=== PATIENT | female | born 1940 | race African-American/Black ===

== ENCOUNTER 2017-12-25 13:03 | Inpatient (IN) ==
--- NOTE | 2017-12-25 14:51 | ED ---
HPI General Chief complaint: Extremity Injury, Upper Stated complaint: finger swelling Time Seen by Provider: 12/25/17 14:08 Source: patient, RN notes reviewed and old records reviewed Mode of arrival: ambulatory Limitations: no limitations History of Present Illness HPI narrative: 77-year-old female presents to the emergency department for evaluation of swelling and pain to the distal aspect of her right second finger. 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 She states that on Wednesday, 6 days ago, she noticed swelling and pain to the distal aspect of the finger. Patient denies any fevers or chills. She states she went to a sports medicine physician who did an x-ray of the finger. X-ray shows no acute osseous injury, stable finding the distal aspect the second ray with amputation of the distal portion of the distal phalanx. Regional soft tissue calcification is stable and overtly benign. Current pain is 10/10, aching and throbbing, without radiation. Moderate severity. Onset (ago): day(s) (6) Location: right and upper extremity Radiation: non-radiation Severity: moderate Severity scale (1-10): 10 Quality: aching Pain Consistency: constant Relieving factors: immobilization Exacerbating factors: movement Associated symptoms: denies other symptoms Treatments prior to arrival: other (x-ray) Related Data Home Medications Medication Instructions Recorded Confirmed calcium carbonate [Calcium 600] 1 tab PO 12/25/17 diclofenac sodium 25 mg PO DAILY 12/25/17 12/25/17 folic acid 1 mg PO DAILY 12/25/17 12/25/17 lisinopril 10 - 12.5 mg PO DAILY 12/25/17 12/25/17 vitamin D3-folic acid 1 tab PO DAILY 12/25/17 12/25/17 Allergies Allergy/AdvReac Type Severity Reaction Status Date / Time penicillin G Allergy Severe Rash Verified 12/25/17 14:38 Sulfa (Sulfonamide Allergy Severe RASH Verified 12/25/17 14:38 Antibiotics) Review of Systems Except as stated in HPI: all other systems reviewed are negative [facility] Social History Social History Substance History: No History of Abuse Second Hand Smoke Exposure: No Smoking Status: Never smoker Tobacco Type: Cigarettes How Often Do You Have a Drink Containing Alcohol: Never Recent Travel in [facility] within the Last 8 Weeks: No Recent Out of Country Travel within the Last 8 Weeks: No Immunization History Tetanus Immunization: Unsure Hx Influenza Vaccine This Season: No Exam Narrative Exam Narrative: GENERAL: Well-nourished, well-developed elderly female patient, afebrile SKIN: Focused skin assessment warm/dry. Patient is diffuse soft tissue swelling over the distal aspect of the left second finger without active drainage. Swelling appears fluctuant with erythema. HEAD: Normocephalic. Atraumatic. EYES: No scleral icterus. No injection or drainage. NECK: Supple, trachea midline. No JVD or lymphadenopathy. CARDIOVASCULAR: Regular rate and rhythm without murmurs, gallops, or rubs. RESPIRATORY: Breath sounds equal bilaterally. No accessory muscle use. GASTROINTESTINAL: Abdomen soft, non-tender, nondistended. MUSCULOSKELETAL: No cyanosis, or edema. Patient has slightly limited flexion of the left second PIP joint. 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 BACK: No obvious deformity. Course Initial Documented Vital Signs Temperature 98.3 F 12/25/17 13:06 Pulse Rate 76 12/25/17 13:06 Respiratory Rate 17 12/25/17 13:06 Blood Pressure 123/68 12/25/17 13:06 Pulse Oximetry 99 12/25/17 13:06 Last Documented Vital Signs Temperature 97.9 F 12/26/17 08:00 Pulse Rate 68 12/26/17 08:00 Respiratory Rate 18 12/26/17 08:00 Blood Pressure 124/68 12/26/17 08:00 Pulse Oximetry 99 12/26/17 08:00 Medical Decision Making MORELIA Attestation MORELIA supervised visit: Yes Attestation: The history, exam, and medical decision-making in the associated midlevel provider note were completed with my assistance. I reviewed and agree with the findings presented. I attest that I had a [id number] encounter with the patient on the same day, and personally performed and documented my assessment and findings in the medical record. *My assessment and Findings: This is a 77-year-old female who presents to the emergency department with an abscess involving the stump of a finger with a previous distal amputation. Case was discussed with Dr. Pinzon who recommended the patient be placed in observation on antibiotics and she will evaluate her for potential surgical intervention. MDM Narrative Medical decision making narrative: 77-year-old female presents to the emergency department for evaluation of swelling to the distal aspect of her left second finger this started 6 days ago. Hand surgeon on-call is paged for consultation. I spoke with Dr. Pinzon who recommends admission with antibiotics in the consultation. CBC, BMP, PTT, PT/INR, ESR, CRP, blood cultures are ordered and pending. Patient is given Clindamycin 600 mg IV. CBC shows no acute abnormalities. BMP shows BUN 28, creatinine of 1.29. CRP is 1.29. ESR is 32. Coags are unremarkable. Residents accepted admission. Differential Diagnosis Differential Diagnosis: Abscess versus cellulitis versus osteomyelitis Medical Records Medical records reviewed: Yes I reviewed the patient's medical records. Lab Data Result diagrams: 12/26/17 07:45 12/26/17 07:15 Lab Results 12/25/17 12/25/17 12/25/17 Range/Units 15:35 15:35 15:35 WBC 7.9 (4.0-11.0) th/mm3 RBC 4.00 (4.00-5.30) mil/mm3 Hgb 11.3 L (11.6-15.3) gm/dL Hct 35.3 (35.0-46.0) % MCV 88.1 (80.0-100.0) fL MCH 28.3 (27.0-34.0) pg MCHC 32.2 (32.0-36.0) % RDW 14.8 (11.6-17.2) % Plt Count 151 (150-450) th/mm3 MPV 10.6 (7.0-11.0) fL Neut % (Auto) 65.9 (16.0-70.0) % Lymph % (Auto) 22.7 (9.0-44.0) % [place] % (Auto) 9.2 H (0.0-8.0) % Eos % (Auto) 1.4 (0.0-4.0) % Baso % (Auto) 0.8 (0.0-2.0) % Neut # (Auto) 5.2 (1.8-7.7) th/mm3 Lymph # (Auto) 1.8 (1.0-4.8) th/mm3 [place]land # (Auto) 0.7 (0.0-0.9) th/mm3 Eos # (Auto) 0.1 (0.0-0.4) th/mm3 Baso # (Auto) 0.1 (0.0-0.2) th/mm3 WBC Differential . Differential Comment Auto diff final ESR (0-30) mm/hr PT 10.0 (9.8-11.6) sec INR 1.0 Ratio APTT 28.5 (24.3-30.1) sec Sodium 139 (136-145) meq/L Potassium 5.1 (3.5-5.1) meq/L Chloride 107 (98-107) meq/L Carbon Dioxide 21.1 (21.0-32.0) meq/L Anion Gap 11 (5-15) meq/L BUN 28 H (7-18) mg/dL Creatinine 1.29 H (0.50-1.00) mg/dL Estimated GFR 48 L (>89) mL/min POC Glucose (68-110) mg/dl Random Glucose 77 (74-106) mg/dL Calcium 9.0 (8.5-10.1) mg/dL Total Bilirubin (0.2-1.0) mg/dL AST (15-37) U/L ALT (10-53) U/L Alkaline Phosphatase (45-117) U/L C-Reactive Protein (0.00-0.30) mg/dL Total Protein (6.4-8.2) g/dL Albumin (3.4-5.0) g/dL Blood Type Antibody Screen 12/25/17 12/25/17 12/25/17 Range/Units 15:35 15:35 23:44 WBC (4.0-11.0) th/mm3 RBC (4.00-5.30) mil/mm3 Hgb (11.6-15.3) gm/dL Hct (35.0-46.0) % MCV (80.0-100.0) fL MCH (27.0-34.0) pg MCHC (32.0-36.0) % RDW (11.6-17.2) % Plt Count (150-450) th/mm3 MPV (7.0-11.0) fL Neut % (Auto) (16.0-70.0) % Lymph % (Auto) (9.0-44.0) % [place] % (Auto) (0.0-8.0) % Eos % (Auto) (0.0-4.0) % Baso % (Auto) (0.0-2.0) % Neut # (Auto) (1.8-7.7) th/mm3 Lymph # (Auto) (1.0-4.8) th/mm3 [place]land # (Auto) (0.0-0.9) th/mm3 Eos # (Auto) (0.0-0.4) th/mm3 Baso # (Auto) (0.0-0.2) th/mm3 WBC Differential Differential Comment ESR 32 H (0-30) mm/hr PT (9.8-11.6) sec INR Ratio APTT (24.3-30.1) sec Sodium (136-145) meq/L Potassium (3.5-5.1) meq/L Chloride (98-107) meq/L Carbon Dioxide (21.0-32.0) meq/L Anion Gap (5-15) meq/L BUN (7-18) mg/dL Creatinine (0.50-1.00) mg/dL Estimated GFR (>89) mL/min POC Glucose (68-110) mg/dl Random Glucose (74-106) mg/dL Calcium (8.5-10.1) mg/dL Total Bilirubin (0.2-1.0) mg/dL AST (15-37) U/L ALT (10-53) U/L Alkaline Phosphatase (45-117) U/L C-Reactive Protein 2.40 H (0.00-0.30) mg/dL Total Protein (6.4-8.2) g/dL Albumin (3.4-5.0) g/dL Blood Type O Positive Antibody Screen Negative 12/26/17 12/26/17 12/26/17 Range/Units 07:15 07:45 09:15 WBC 6.2 (4.0-11.0) th/mm3 RBC 3.83 L (4.00-5.30) mil/mm3 Hgb 10.7 L (11.6-15.3) gm/dL Hct 33.1 L (35.0-46.0) % MCV 86.3 (80.0-100.0) fL MCH 28.0 (27.0-34.0) pg MCHC 32.4 (32.0-36.0) % RDW 14.9 (11.6-17.2) % Plt Count 142 L (150-450) th/mm3 MPV 10.2 (7.0-11.0) fL Neut % (Auto) 55.3 (16.0-70.0) % Lymph % (Auto) 31.7 (9.0-44.0) % [place] % (Auto) 10.1 H (0.0-8.0) % Eos % (Auto) 2.2 (0.0-4.0) % Baso % (Auto) 0.7 (0.0-2.0) % Neut # (Auto) 3.4 (1.8-7.7) th/mm3 Lymph # (Auto) 2.0 (1.0-4.8) th/mm3 [place] # (Auto) 0.6 (0.0-0.9) th/mm3 Eos # (Auto) 0.1 (0.0-0.4) th/mm3 Baso # (Auto) 0.0 (0.0-0.2) th/mm3 WBC Differential . Differential Comment Auto diff final ESR (0-30) mm/hr PT (9.8-11.6) sec INR Ratio APTT (24.3-30.1) sec Sodium 145 (136-145) meq/L Potassium 4.4 (3.5-5.1) meq/L Chloride 112 H (98-107) meq/L Carbon Dioxide 23.5 (21.0-32.0) meq/L Anion Gap 10 (5-15) meq/L BUN 27 H (7-18) mg/dL Creatinine 1.13 H (0.50-1.00) mg/dL Estimated GFR 56 L (>89) mL/min POC Glucose 78 (68-110) mg/dl Random Glucose 76 (74-106) mg/dL Calcium 8.9 (8.5-10.1) mg/dL Total Bilirubin 0.3 (0.2-1.0) mg/dL AST 42 H (15-37) U/L ALT 31 (10-53) U/L Alkaline Phosphatase 126 H (45-117) U/L C-Reactive Protein (0.00-0.30) mg/dL Total Protein 7.4 (6.4-8.2) g/dL Albumin 3.2 L (3.4-5.0) g/dL Blood Type Antibody Screen Imaging Data Radiologist's impression: Finger X-Ray 12/25/17 00:00 CONCLUSION: Soft tissue swelling as above. There has been no significant change when compared to the prior exam. Hand MRI 12/25/17 00:00 CONCLUSION: Lobulated 1.5 cm mass at the distal aspect of the second digit. 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 On the plain film examination, the appearance of the distal second digit appears similar compared to prior exam from 2013. This suggest the soft tissue changes represent a chronic underlying process such an epidermis inclusion cyst versus other soft tissue masses/fluid collections. No acute bony changes are seen. Discharge Plan Discharge Disposition Patient Disposition: 30 Still Patient Discharge Details Diagnosis: Abscess of finger Physicians Team ED Provider: Gema Landa ED Midlevel Provider: Renetta Galeas Primary Care Provider: Brenda Manjarrez Attending Provider: Milly Young Other Providers: Kathryn Pinzon Status ED Status: Left Department Discharge Information Discharge Date/Time: 12/26/17 07:00
[2017-12-25] MEDS ORDERED: Clindamycin 600 mg/NS Premix 600 MG/50 ML PIGGYBACK IV.SIG ONE (15:22)
[2017-12-25 16:11] LABS: Baso # (Auto) 0.1 th/mm3 (0.0-0.2); Baso % (Auto) 0.8 % (0.0-2.0); Eos # (Auto) 0.1 th/mm3 (0.0-0.4); Eos % (Auto) 1.4 % (0.0-4.0); Hematocrit 35.3 % (35.0-46.0); Hemoglobin 11.3 gm/dL (11.6-15.3); Lymph # (Auto) 1.8 th/mm3 (1.0-4.8); Lymph % (Auto) 22.7 % (9.0-44.0); Mean Corpuscular HGB Conc 32.2 % (32.0-36.0); Mean Corpuscular Hemoglobin 28.3 pg (27.0-34.0); Mean Corpuscular Volume 88.1 fL (80.0-100.0); Mean Platelet Volume 10.6 fL (7.0-11.0); Mono # (Auto) 0.7 th/mm3 (0.0-0.9); Mono % (Auto) 9.2 % (0.0-8.0); Neut # (Auto) 5.2 th/mm3 (1.8-7.7); Neut % (Auto) 65.9 % (16.0-70.0); Platelet Count 151 th/mm3 (150-450); Red Cell Distribution Width 14.8 % (11.6-17.2); White Blood Count 7.9 th/mm3 (4.0-11.0)
[2017-12-25 16:28] LABS: Activated Partial Thrombo Time 28.5 sec (24.3-30.1)
[2017-12-25 16:29] LABS: Carbon Dioxide 21.1 meq/L (21.0-32.0); Potassium 5.1 meq/L (3.5-5.1)
--- NOTE | 2017-12-25 17:13 | XR ---
EXAM DATE: 12/25/2017 5:02 PM EDT AGE/SEX: 77 years / Female INDICATIONS: Right hand, second digit swelling. CLINICAL DATA: This is the patient's initial encounter. Patient reports that signs and symptoms have been present for 1 week and indicates a pain score of 4/10. MEDICAL/SURGICAL HISTORY: None. . 2nd digit amputation on right hand. COMPARISON: [facility], XR HAND (2 VIEWS), RIGHT, 12/23/2017. . FINDINGS: There is soft tissue swelling of the second digit. There is amputation at the level of the base of th e distal phalanx. Soft tissue calcification is unchanged from the prior exam. 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 There is no evidence of acute fracture. Bony minera lization is normal. There is no bony destruction or periosteal reaction to suggest osteomyelitis. T here is calcification of the triangular fibrocartilage. . CONCLUSION: Soft tissue swelling as above. There has been no significant change when compared to the prior exam. Electronically signed by: Vasu Lovell MD 12/25/2017 5:11 PM EDT
--- NOTE | 2017-12-25 17:38 | MR ---
EXAM DATE: 12/25/2017 4:44 PM EDT AGE/SEX: 77 years / Female INDICATIONS: Abscess. Second digit swelling. CLINICAL DATA: This is the patient's initial encounter. Patient reports that signs and symptoms have been present for 4 - 6 days and indicates a pain score of 5/10. MEDICAL/SURGICAL HISTORY: Hypertension. Hysterectomy. Second digit terminal terminal tuft accid ental amputation 1984 COMPARISON: [facility], XR HAND (MIN 3 VIEWS), RIGHT, 04/12/2013. . TECHNIQUE: Multiplanar, multisequence MRI examination was performed without contrast. FINDINGS: Marrow: The patient is status post amputation distal two thirds of the distal phalanx of the second digit. The marrow signal throughout the visualized bony structures appear normal. No areas of osteomy elitis are seen. Metacarpal-Phalangeal Joints: The MCP joints are unremarkable with no evidence of erosion, effusion, or malalignment. Interphalangeal Joints: The PIP and DIP joints are unremarkable with no evidence of erosion, effusio n or malalignment. Extensor Tendons: The visualized extensor tendons are intact. Flexor Tendons: The visualized flexor tendons are intact. Soft Tissues: There is a lobulated mass seen at the distal lateral aspect of the second digit at the patient's site. This measures approximately 1.4 cm in height, 1.4 cm in transverse dimension and 1.5 cm in AP dimension. There does appear to be a focus of low signal seen at the posterior lateral aspec t of this measuring 0.6 x 0.3 cm. This mass demonstrates increased signal in T2-weighted images and i ntermediate signal on the T1-weighted images. This does not appear to enhance. It could a complex cys tic components. This appears to have septations on the MRI examination. Coarse appearing calcificatio ns are seen on the plain film examination. These can be seen as minimal areas of low signal best seen on the coronal T1 postcontrast images. In reviewing the patient's plain films, the patient had a lob ulated appearance the distal second digit on prior exam from 04/12/2013 which appears similar to the more recent plain film. This suggests these changes are chronic. CONCLUSION: Lobulated 1.5 cm mass at the distal aspect of the second digit. 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 On the plain film examination, the appearance of the distal sec ond digit appears similar compared to prior exam from 2013. This suggest the soft tissue changes repr esent a chronic underlying process such an epidermis inclusion cyst versus other soft tissue masses/f luid collections. No acute bony changes are seen. Electronically signed by: Irving Kwan MD 12/25/2017 5:36 PM EDT
--- NOTE | 2017-12-25 18:07 | P.HPFP ---
History of Present Illness Primary Care Physician: Brenda Manjarrez MD Chief Complaint: finger pain History of Present Illness: Ms. Christianson is a 77-year-old with a past medical history of rheumatoid arthritis, hypertension presenting with right second digit pain. She states that this started 3 days ago when she woke up and noticed an infection. 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 She states that the finger started irritating her this week and hurting at night. She went to see Dr. Brewster, hand surgery, who prescribed her Bactrim. She took 1 pill not realizing it was a sulfa drug and became sick. She did not take anymore the antibiotic. This morning she woke up drenched in sweat and noticed a pocket of pus in her finger. The pain had also become much worse today. She took some diclofenac which did not help with the pain. Medical Hx Osteoarthritis Rheumatoid Arthritis HTN Frequent Falls Surgical Hx Hysterectomy for fibroids Right knee (arthroscopy) Family Hx Father - at age 72; strokes, HTN, heart Dz Mother - age 62 in MVA; arthritis Siblings - 4; one has HTN and DM, one in WW2 Children - 7 living, healthy Social Hx Tobacco: former smoker, quit age [age] (doesn't recall exact year, but > 30 years ago) Alcohol: None Drugs: None Occupation: Homemaker Living situation: Lives with many of her children in a house Education: GED - Diagnosis (1) Abscess of finger (2) HTN (hypertension) (3) Rheumatoid arthritis (4) CKD (chronic kidney disease) (5) Nutrition, metabolism, and development symptoms (6) DVT prophylaxis Inpatient Certification: I certify that the inpatient services were ordered in accordance with Medicare regulations governing the order. This includes certification that hospital inpatient services are reasonable and necessary and in the case of services not specified as inpatient-only under 42 CFR 419.22(n), that they are appropriately provided as inpatient services in accordance to with the 2-midnight benchmark under 43 CFR 412.3(e) Review of Systems Constitutional: Reports night sweats, Denies chills, Denies fever(s) Cardiovascular: Denies chest pain Respiratory: Denies shortness of breath Gastrointestinal: Denies abdominal pain, Denies change in bowel habits, Denies nausea, Denies vomiting Genitourinary: Denies difficulty starting urination Musculoskeletal: Reports joint swelling, Denies muscle weakness Neurologic: Denies tingling/numbness/burning sensations PMFSH - History History Provided By: Patient - Tobacco History Second Hand Smoke Exposure: No Tobacco Use In Past 30 Days: No Smoking Status: Never smoker - Alcohol History How Often Do You Have a Drink Containing Alcohol: Never - Substance Use History Substance History: No History of Abuse - Travel History Recent Travel in the [place] Within the Last 8 Weeks: No Recent Travel Out of the Country Within the Last 8 Weeks: No - Immunization History Tetanus Immunization: Unsure Hx Influenza Vaccine This Season: No Medications and Allergies Active Medications: Active Medications Sodium Chloride (Ns Flush) 2 ml IV.FLUSH PRN PRN PRN Reason: FLUSH AFTER USING IV ACCESS Sodium Chloride (Ns Flush) 2 ml IV.FLUSH BID CARMEN Allergies Allergy/AdvReac Type Severity Reaction Status Date / Time penicillin G Allergy Severe Rash Verified 12/25/17 14:38 Sulfa (Sulfonamide Allergy Severe RASH Verified 12/25/17 14:38 Antibiotics) Home Medications Medication Instructions Recorded Confirmed Type calcium carbonate [Calcium 600] 1 tab PO 12/25/17 History diclofenac sodium 25 mg PO DAILY 12/25/17 12/25/17 History folic acid 1 mg PO DAILY 12/25/17 12/25/17 History lisinopril 10 - 12.5 mg PO DAILY 12/25/17 12/25/17 History vitamin D3-folic acid 1 tab PO DAILY 12/25/17 12/25/17 History Exam Vital signs: Vital Signs 12/25/17 13:06 12/25/17 17:00 Temperature 98.3 F Pulse Rate 76 75 Respiratory Rate 17 16 Blood Pressure 123/68 167/84 H Pulse Oximetry 99 100 Intake & Output 12/24/17 12/25/17 12/25/17 18:59 06:59 18:59 Weight 68.946 kg Narrative: GENERAL: Elderly -[place] female sitting up in bed, in no acute distress SKIN: Warm and dry. HEAD: Atraumatic. Normocephalic. EYES: No scleral icterus. No injection or drainage. ENT: No nasal bleeding or discharge. NECK: Trachea midline. No JVD. CARDIOVASCULAR: Regular rate and rhythm. Holosystolic murmur RESPIRATORY: No accessory muscle use. Clear to auscultation. Breath sounds equal bilaterally. GASTROINTESTINAL: Abdomen soft, non-tender, nondistended. Hepatic and splenic margins not palpable. MUSCULOSKELETAL: Extremities without clubbing, cyanosis, or edema. No obvious deformities. Right hand: Amputation at the DIP joint of the right second digit. There appears to be edematous. Tender to palpation. 4 mm x 4 mm abscess at superior aspect of digit, 2 mm x 2 mm abscess superior medial aspect of digit NEUROLOGICAL: Awake and alert. No obvious cranial nerve deficits. Motor grossly within normal limits. Five out of 5 muscle strength in the arms and legs. Normal speech. PSYCHIATRIC: Appropriate mood and affect; insight and judgment normal. Results - Labs Result diagrams: 12/25/17 15:35 12/25/17 15:35 Abnormal lab results 12/25/17 12/25/17 12/25/17 Range/Units 15:35 15:35 15:35 Hgb 11.3 L (11.6-15.3) gm/dL Dewey % (Auto) 9.2 H (0.0-8.0) % ESR 32 H (0-30) mm/hr BUN 28 H (7-18) mg/dL Creatinine 1.29 H (0.50-1.00) mg/dL Estimated GFR 48 L (>89) mL/min C-Reactive Protein (0.00-0.30) mg/dL 12/25/17 Range/Units 15:35 Hgb (11.6-15.3) gm/dL Dewey % (Auto) (0.0-8.0) % ESR (0-30) mm/hr BUN (7-18) mg/dL Creatinine (0.50-1.00) mg/dL Estimated GFR (>89) mL/min C-Reactive Protein 2.40 H (0.00-0.30) mg/dL Short CBC 12/25/17 Range/Units 15:35 WBC 7.9 (4.0-11.0) th/mm3 Hgb 11.3 L (11.6-15.3) gm/dL Hct 35.3 (35.0-46.0) % Plt Count 151 (150-450) th/mm3 BMP 12/25/17 15:35 Sodium 139 Potassium 5.1 Chloride 107 Carbon Dioxide 21.1 BUN 28 H Creatinine 1.29 H Calcium 9.0 - Imaging Impressions Finger X-Ray 12/25/17 00:00 CONCLUSION: Soft tissue swelling as above. There has been no significant change when compared to the prior exam. Hand MRI 12/25/17 00:00 CONCLUSION: Lobulated 1.5 cm mass at the distal aspect of the second digit. 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 On the plain film examination, the appearance of the distal second digit appears similar compared to prior exam from 2012. This suggest the soft tissue changes represent a chronic underlying process such an epidermis inclusion cyst versus other soft tissue masses/fluid collections. No acute bony changes are seen. Caprini VTE Risk Assessment Caprini VTE Risk Assessment: Moderate/High Risk (score >= 2) Caprini Risk Assessment Model: Point Value = 1 Point Value = 2 Point Value = 3 Point Value = 5 Age 41-60 Minor surgery BMI > 25 kg/m2 Swollen legs Varicose veins or History of unexplained or recurrent spontaneous Oral contraceptives or hormone replacement Sepsis (< 1 month) Serious lung disease, including pneumonia (< 1 month) Abnormal pulmonary function Acute myocardial infarction Congestive heart failure (< 1 month) History of inflammatory bowel disease Medical patient at bed rest Age 61-74 Arthroscopic surgery Major open surgery (> 45 min) Laparoscopic surgery (> 45 min) Malignancy Confined to bed (> 72 hours) Immobilizing plaster cast Central venous access Age >= 75 History of VTE Family history of VTE Factor V Leiden Prothrombin [id number] Lupus anticoagulant Anticardiolipin antibodies Elevated serum homocysteine Heparin-induced thrombocytopenia Other congenital or acquired thrombophilia Stroke (< 1 month) Elective arthroplasty Hip, pelvis, or leg fracture Acute spinal cord injury (< 1 month) Prophylaxis Regimen: Total Risk Factor Score Risk Level Prophylaxis Regimen 0-1 Low Early ambulation 2 Moderate Order ONE of the following: *Sequential Compression Device (SCD) *Heparin 5000 units SQ BID 3-4 Higher Order ONE of the following medications: *Heparin 5000 units SQ TID *Enoxaparin/Lovenox 40 mg SQ daily (WT < 150 kg, CrCl > 30 mL/min) *Enoxaparin/Lovenox 30 mg SQ daily (WT < 150 kg, CrCl > 10-29 mL/min) *Enoxaparin/Lovenox 30 mg SQ BID (WT < 150 kg, CrCl > 30 mL/min) AND/OR *Sequential Compression Device (SCD) 5 or more Highest Order ONE of the following medications: *Heparin 5000 units SQ TID (Preferred with Epidurals) *Enoxaparin/Lovenox 40 mg SQ daily (WT < 150 kg, CrCl > 30 mL/min) *Enoxaparin/Lovenox 30 mg SQ daily (WT < 150 kg, CrCl > 10-29 mL/min) *Enoxaparin/Lovenox 30 mg SQ BID (WT < 150 kg, CrCl > 30 mL/min) AND *Sequential Compression Device (SCD) Assessment and Plan - Assessment (1) Abscess of finger Code(s): L02.519 - Cutaneous abscess of unspecified hand Status: Acute Plan: Patient with visible abscess of second digit of right hand. CRP and ESR are elevated. Likely osteomyelitis versus abscess versus cellulitis. Hand MRI: Lobulated 1.5 cm mass at the distal aspect of the second digit. 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 The soft tissue changes represent a chronic underlying process such an epidermis inclusion cyst versus other soft tissue masses/fluid collections. No acute bony changes are seen. -Consult hand surgery, ED physician spoke with Dr. Pinzon, appreciate recommendations -N.p.o. after midnight -NS IV fluids at maintenance rate 110 mL's/hour -Clindamycin 600 mg IV given in ED -Will continue this at every 8 hours -Tramadol per pain scale (2) HTN (hypertension) Code(s): I10 - Essential (primary) hypertension Status: Chronic Plan: Continue patient's at home medication of lisinopril-HCTZ 10-12.5 mg daily (3) Rheumatoid arthritis Code(s): M06.9 - Rheumatoid arthritis, unspecified Status: Chronic Plan: Patient currently not on her at home methotrexate. She is to follow-up with her corn cooker as of her last progress note from the [facility]. (4) CKD (chronic kidney disease) Code(s): N18.9 - Chronic kidney disease, unspecified Status: Chronic Plan: Creatinine at 2.40. Upon chart review creatinine 12/06/17 was 1.19. This is likely an acute on chronic situation. -Continue to monitor -IVF on board (5) Nutrition, metabolism, and development symptoms Code(s): R63.8 - Other symptoms and signs concerning food and fluid intake Status: Acute Plan: Fluids: NS @ 110ml/hr Electrolytes: monitor and replete as needed Nutrition: NPO after midnight GI Prophylaxis: None indicated at this time (6) DVT prophylaxis Status: Acute Plan: DVT Prophylaxis: Early ambulation. bilateral SCDs - Assessment and Plan 77-year-old AAF with a past medical history of CKD, hypertension, rheumatoid arthritis presenting with second digit of the right hand pain. Patient likely has an abscess. Hand surgery is on board. Discussed Condition With: Dr. Kahn Discharge Planning: Upon clinical course and clearance by hand surgery (1) Abscess of finger Qualifiers: Laterality: right Qualified Code(s): L02.511 - Cutaneous abscess of right hand
[2017-12-25] MEDS ORDERED: Acetaminophen 325 MG Tablet PO PRN (19:40)
[2017-12-25] MEDS ORDERED: Naloxone Inj 0.4 MG/ML Vial IV.PUSH PRN (19:40)
[2017-12-25] MEDS: Clindamycin 600 mg/NS Premix 600 MG/50 ML PIGGYBACK IV.SIG SCH (21:14)
[2017-12-26] MEDS: Sod Chloride 0.9% Inj 1,000 ML IV.CONT SCH (00:08)
[2017-12-26 08:28] LABS: Baso % (Auto) 0.7 % (0.0-2.0); Eos # (Auto) 0.1 th/mm3 (0.0-0.4); Eos % (Auto) 2.2 % (0.0-4.0); Hematocrit 33.1 % (35.0-46.0); Hemoglobin 10.7 gm/dL (11.6-15.3); Lymph % (Auto) 31.7 % (9.0-44.0); Mean Corpuscular HGB Conc 32.4 % (32.0-36.0); Mean Corpuscular Volume 86.3 fL (80.0-100.0); Mean Platelet Volume 10.2 fL (7.0-11.0); Mono # (Auto) 0.6 th/mm3 (0.0-0.9); Mono % (Auto) 10.1 % (0.0-8.0); Neut # (Auto) 3.4 th/mm3 (1.8-7.7); Neut % (Auto) 55.3 % (16.0-70.0); Platelet Count 142 th/mm3 (150-450); Red Blood Count 3.83 mil/mm3 (4.00-5.30); Red Cell Distribution Width 14.9 % (11.6-17.2); White Blood Count 6.2 th/mm3 (4.0-11.0)
[2017-12-26 08:54] LABS: Alanine Aminotransferase 31 U/L (10-53); Albumin 3.2 g/dL (3.4-5.0); Anion Gap 10 meq/L (5-15); Aspartate Aminotransferase 42 U/L (15-37); Blood Urea Nitrogen 27 mg/dL (7-18); Calcium 8.9 mg/dL (8.5-10.1); Carbon Dioxide 23.5 meq/L (21.0-32.0); Chloride 112 meq/L (98-107); Glomerular Filtration Rate 56 mL/min (>89); Glucose,Random 76 mg/dL (74-106); Potassium 4.4 meq/L (3.5-5.1); Sodium 145 meq/L (136-145)
[2017-12-26 08:57] LABS: Alkaline Phosphatase 126 U/L (45-117); Total Protein 7.4 g/dL (6.4-8.2)
[2017-12-26] MEDS ORDERED: Clindamycin Inj 600 MG/4 ML Vial ONE (09:34)
[2017-12-26] MEDS ORDERED: Morphine Inj 4 MG/ML Vial IV.PUSH PRN ×2 (09:34)
[2017-12-26] MEDS ORDERED: Morphine Sulfate Inj 2 MG/ML Vial IV.PUSH PRN (09:34)
[2017-12-26] MEDS ORDERED: Neomycin/Polymyxin G.U. Irrigant 1 ML Ampul ONE (10:14)
[2017-12-26] MEDS ORDERED: Lidocaine PF 2% Inj 10 ML Ampul ONE (10:23)
[2017-12-26] MEDS ORDERED: fentaNYL Citrate Inj 100 MCG/2 ML Ampul ONE (11:45)
--- NOTE | 2017-12-26 11:53 | P.HPFP ---
History of Present Illness Primary Care Physician: Brenda Manjarrez MD Chief Complaint: finger pain History of Present Illness: Ms. Christianson is a 77-year-old with a past medical history of rheumatoid arthritis, hypertension presenting with right second digit pain. She states that this started 3 days prior to admission when she woke up and noticed an infection. 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 She states that the finger started irritating her this week and hurting at night. She went to see Dr. Brewstre, hand surgery, who prescribed her Bactrim. She took 1 pill not realizing it was a sulfa drug and became sick. She did not take anymore antibiotic. The morning of admission she woke up drenched in sweat and noticed a pocket of pus in her finger. The pain had also become much worse today. She took some diclofenac which did not help with the pain. She was seen by the hand surgeon. She underwent surgery and according to the operative note there was no raging infection. This was felt to be more of a stable problem. Her clindamycin was discontinued. Her white blood count is and has been normal. Her sedimentation rate is normal especially considering she has rheumatoid arthritis. She has had no fevers. Medical Hx Osteoarthritis Rheumatoid Arthritis HTN Frequent Falls Surgical Hx Hysterectomy for fibroids Right knee (arthroscopy) Family Hx Father - at age 72; strokes, HTN, heart Dz Mother - age 62 in MVA; arthritis Siblings - 4; one has HTN and DM, one in WW2 Children - 7 living, healthy Social Hx Tobacco: former smoker, quit age [age] (doesn't recall exact year, but > 30 years ago) Alcohol: None Drugs: None Occupation: Homemaker Living situation: Lives with many of her children in a house Education: GED - Diagnosis (1) Abscess of finger (2) HTN (hypertension) (3) Rheumatoid arthritis (4) CKD (chronic kidney disease) (5) Nutrition, metabolism, and development symptoms (6) DVT prophylaxis Inpatient Certification: I certify that the inpatient services were ordered in accordance with Medicare regulations governing the order. This includes certification that hospital inpatient services are reasonable and necessary and in the case of services not specified as inpatient-only under 42 CFR 419.22(n), that they are appropriately provided as inpatient services in accordance to with the 2-midnight benchmark under 43 CFR 412.3(e) Review of Systems See the review of systems from her history and physical dictated yesterday. PMFSH - History History Provided By: Patient - Tobacco History Second Hand Smoke Exposure: No Tobacco Use In Past 30 Days: No Smoking Status: Never smoker Tobacco Type: Cigarettes - Alcohol History How Often Do You Have a Drink Containing Alcohol: Never - Substance Use History Substance History: No History of Abuse - Travel History Recent Travel in the [place] Within the Last 8 Weeks: No Recent Travel Out of the Country Within the Last 8 Weeks: No - Immunization History Tetanus Immunization: Unsure Hx Influenza Vaccine This Season: No Medications and Allergies Active Medications: Active Medications Acetaminophen (Tylenol) 650 mg PO Q6H PRN PRN Reason: PAIN SCALE 1 TO 2 Hydrochlorothiazide (Microzide) 12.5 mg PO DAILY [facility] Sodium Chloride (Ns Inj) 1,000 mls @ 110 mls/hr IV.CONT .Q9H6M [facility] Last Admin: 12/26/17 00:08 Dose: 110 mls/hr Lisinopril (Prinivil) 10 mg PO DAILY [facility] Morphine Sulfate (Morphine Inj) 4 mg IV.PUSH Q3H PRN PRN Reason: PAIN 6-10;IF UNABLE TO TAKE PO Morphine Sulfate (Morphine Inj) 2 mg IV.PUSH Q3H PRN PRN Reason: BREAKTHROUGH PAIN Morphine Sulfate (Morphine Inj) 2 mg IV.PUSH Q3H PRN PRN Reason: PAIN 3-5; IF UABLE TO TAKE PO Naloxone HCl (Narcan Inj) 0.4 mg IV.PUSH UNSCH PRN PRN Reason: SEE LABEL COMMENTS Ondansetron HCl (Zofran Inj) 4 mg IV.PUSH Q6H PRN PRN Reason: NAUSEA OR VOMITING Sodium Chloride (Ns Flush) 2 ml IV.FLUSH PRN PRN PRN Reason: FLUSH AFTER USING IV ACCESS Sodium Chloride (Ns Flush) 2 ml IV.FLUSH BID [facility] Last Admin: 12/25/17 21:24 Dose: 2 ml Tramadol HCl (Ultram) 100 mg PO Q4H PRN PRN Reason: PAIN SCALE 6 TO 10 Last Admin: 12/25/17 21:23 Dose: 100 mg Tramadol HCl (Ultram) 50 mg PO Q4H PRN PRN Reason: PAIN SCALE 3 TO 5 Allergies Allergy/AdvReac Type Severity Reaction Status Date / Time penicillin G Allergy Severe Rash Verified 12/25/17 14:38 Sulfa (Sulfonamide Allergy Severe RASH Verified 12/25/17 14:38 Antibiotics) Home Medications Medication Instructions Recorded Confirmed Type calcium carbonate [Calcium 600] 1 tab PO 12/25/17 History diclofenac sodium 25 mg PO DAILY 12/25/17 12/25/17 History folic acid 1 mg PO DAILY 12/25/17 12/25/17 History lisinopril 10 - 12.5 mg PO DAILY 12/25/17 12/25/17 History vitamin D3-folic acid 1 tab PO DAILY 12/25/17 12/25/17 History Exam Vital signs: Vital Signs 12/25/17 13:06 12/25/17 17:00 12/25/17 21:20 Temperature 98.3 F 98.1 F Pulse Rate 76 75 84 Respiratory Rate 17 16 17 Blood Pressure 123/68 167/84 H 111/64 Pulse Oximetry 99 100 98 12/26/17 03:25 12/26/17 08:00 Temperature 97.9 F 97.9 F Pulse Rate 84 68 Respiratory Rate 16 18 Blood Pressure 118/63 124/68 Pulse Oximetry 100 99 Intake & Output 12/25/17 12/26/17 12/26/17 18:59 06:59 18:59 Intake Total 770 / 770 Balance 770 / 770 Weight 68.946 kg Intake: IV 50 / 50 Cleocin 600 mg/NS Premix 600 mg 50 / 50 In 50 ml @ 100 mls/hr IV.SIG ONCE ONE Rx#:[id number] Oral 720 / 720 Other: # Voids 0 Date of Last Bowel Movement 12/24/17 - Constitutional no acute distress, thin, cooperative - Routine HEENT Exam Head: Present: normocephalic, atraumatic. Absent: cushingoid faces, laceration , facial swelling Eye: Present: EOMI. Absent: scleral injection, conjunctivae pink, periorbital ecchymosis, periorbital swelling ENT: Present: mucous membranes moist. Absent: septal deviation - Routine Neck Exam Present: supple, trachea midline - Routine Chest/Breast/Axilla Exam Chest wall: Absent: tenderness, pacemaker, chest tube - Routine Respiratory Exam Present: CTA bilaterally. Absent: accessory muscle use, prolonged expiratory phase, rales, respiratory distress, rhonchi - Routine Cardiovascular Exam Present: RRR. Absent: murmur, gallop, rubs, bradycardia, tachycardia - Routine Abdominal Exam Present: soft. Absent: tenderness, distended, rebound, guarding, firm, rigid - Routine Extremities Exam Absent: cyanosis, clubbing, edema, pallor (Her hand is bandaged where the surgery was done today.) - Routine Skin Exam Present: intact, dry. Absent: cyanosis, erythema, pallor, mottling, petechiae - Routine Neurological Exam Present: alert, oriented X3, moving all extremities, normal tone, hearing grossly intact, normal speech. Absent: sensory deficit, motor deficit Results - Labs Result diagrams: 12/26/17 07:45 12/26/17 07:15 Abnormal lab results 12/25/17 12/25/17 12/25/17 Range/Units 15:35 15:35 15:35 RBC (4.00-5.30) mil/mm3 Hgb 11.3 L (11.6-15.3) gm/dL Hct (35.0-46.0) % Plt Count (150-450) th/mm3 [place] % (Auto) 9.2 H (0.0-8.0) % ESR 32 H (0-30) mm/hr Chloride (98-107) meq/L BUN 28 H (7-18) mg/dL Creatinine 1.29 H (0.50-1.00) mg/dL Estimated GFR 48 L (>89) mL/min AST (15-37) U/L Alkaline Phosphatase (45-117) U/L C-Reactive Protein (0.00-0.30) mg/dL Albumin (3.4-5.0) g/dL 12/25/17 12/26/17 12/26/17 Range/Units 15:35 07:15 07:45 RBC 3.83 L (4.00-5.30) mil/mm3 Hgb 10.7 L (11.6-15.3) gm/dL Hct 33.1 L (35.0-46.0) % Plt Count 142 L (150-450) th/mm3 [place] % (Auto) 10.1 H (0.0-8.0) % ESR (0-30) mm/hr Chloride 112 H (98-107) meq/L BUN 27 H (7-18) mg/dL Creatinine 1.13 H (0.50-1.00) mg/dL Estimated GFR 56 L (>89) mL/min AST 42 H (15-37) U/L Alkaline Phosphatase 126 H (45-117) U/L C-Reactive Protein 2.40 H (0.00-0.30) mg/dL Albumin 3.2 L (3.4-5.0) g/dL Short CBC 12/25/17 12/26/17 Range/Units 15:35 07:45 WBC 7.9 6.2 (4.0-11.0) th/mm3 Hgb 11.3 L 10.7 L (11.6-15.3) gm/dL Hct 35.3 33.1 L (35.0-46.0) % Plt Count 151 142 L (150-450) th/mm3 BMP 12/25/17 12/26/17 15:35 07:15 Sodium 139 145 Potassium 5.1 4.4 Chloride 107 112 H Carbon Dioxide 21.1 23.5 BUN 28 H 27 H Creatinine 1.29 H 1.13 H Calcium 9.0 8.9 Liver Function 12/26/17 Range/Units 07:15 Total Bilirubin 0.3 (0.2-1.0) mg/dL AST 42 H (15-37) U/L ALT 31 (10-53) U/L Alkaline Phosphatase 126 H (45-117) U/L Albumin 3.2 L (3.4-5.0) g/dL - Imaging Impressions Finger X-Ray 12/25/17 00:00 CONCLUSION: Soft tissue swelling as above. There has been no significant change when compared to the prior exam. Hand MRI 12/25/17 00:00 CONCLUSION: Lobulated 1.5 cm mass at the distal aspect of the second digit. 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 On the plain film examination, the appearance of the distal second digit appears similar compared to prior exam from 2012. This suggest the soft tissue changes represent a chronic underlying process such an epidermis inclusion cyst versus other soft tissue masses/fluid collections. No acute bony changes are seen. Caprini VTE Risk Assessment Caprini VTE Risk Assessment: Moderate/High Risk (score >= 2) Caprini Risk Assessment Model: Point Value = 1 Point Value = 2 Point Value = 3 Point Value = 5 Age 41-60 Minor surgery BMI > 25 kg/m2 Swollen legs Varicose veins or History of unexplained or recurrent spontaneous Oral contraceptives or hormone replacement Sepsis (< 1 month) Serious lung disease, including pneumonia (< 1 month) Abnormal pulmonary function Acute myocardial infarction Congestive heart failure (< 1 month) History of inflammatory bowel disease Medical patient at bed rest Age 61-74 Arthroscopic surgery Major open surgery (> 45 min) Laparoscopic surgery (> 45 min) Malignancy Confined to bed (> 72 hours) Immobilizing plaster cast Central venous access Age >= 75 History of VTE Family history of VTE Factor V Leiden Prothrombin [id number] Lupus anticoagulant Anticardiolipin antibodies Elevated serum homocysteine Heparin-induced thrombocytopenia Other congenital or acquired thrombophilia Stroke (< 1 month) Elective arthroplasty Hip, pelvis, or leg fracture Acute spinal cord injury (< 1 month) Prophylaxis Regimen: Total Risk Factor Score Risk Level Prophylaxis Regimen 0-1 Low Early ambulation 2 Moderate Order ONE of the following: *Sequential Compression Device (SCD) *Heparin 5000 units SQ BID 3-4 Higher Order ONE of the following medications: *Heparin 5000 units SQ TID *Enoxaparin/Lovenox 40 mg SQ daily (WT < 150 kg, CrCl > 30 mL/min) *Enoxaparin/Lovenox 30 mg SQ daily (WT < 150 kg, CrCl > 10-29 mL/min) *Enoxaparin/Lovenox 30 mg SQ BID (WT < 150 kg, CrCl > 30 mL/min) AND/OR *Sequential Compression Device (SCD) 5 or more Highest Order ONE of the following medications: *Heparin 5000 units SQ TID (Preferred with Epidurals) *Enoxaparin/Lovenox 40 mg SQ daily (WT < 150 kg, CrCl > 30 mL/min) *Enoxaparin/Lovenox 30 mg SQ daily (WT < 150 kg, CrCl > 10-29 mL/min) *Enoxaparin/Lovenox 30 mg SQ BID (WT < 150 kg, CrCl > 30 mL/min) AND *Sequential Compression Device (SCD) Assessment and Plan - Assessment (1) Abscess of finger Code(s): L02.519 - Cutaneous abscess of unspecified hand Status: Acute Plan: Patient with visible abscess of second digit of right hand when admitted. CRP and ESR are elevated but she does have rheumatoid arthritis. Thought to be on admission osteomyelitis versus abscess versus cellulitis. However on surgery today this was not thought to be all infectious. Hand MRI: Lobulated 1.5 cm mass at the distal aspect of the second digit. 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 The soft tissue changes represent a chronic underlying process such an epidermis inclusion cyst versus other soft tissue masses/fluid collections. No acute bony changes are seen. -Consulted hand surgery, ED physician spoke with Dr. Pinzon, appreciate recommendations -Will eat regular diet at this time -Clindamycin 600 mg IV given in ED -This was stopped by surgery -Tramadol per pain scale -Infectious disease has been consulted (2) HTN (hypertension) Code(s): I10 - Essential (primary) hypertension Status: Chronic Plan: Continue patient's at home medication of lisinopril-HCTZ 10-12.5 mg daily (3) Rheumatoid arthritis Code(s): M06.9 - Rheumatoid arthritis, unspecified Status: Chronic Plan: Patient currently not on her at home methotrexate. She is to follow-up with her system programmer as of her last progress note from the [facility]. (4) CKD (chronic kidney disease) Code(s): N18.9 - Chronic kidney disease, unspecified Status: Chronic Plan: Creatinine at 2.40. Upon chart review creatinine 12/06/17 was 1.19. This is likely an acute on chronic situation. -Continue to monitor -IVF was given. her creatinine is fine today we will Hep-Lock her IV and allow her to eat and drink. (5) Nutrition, metabolism, and development symptoms Code(s): R63.8 - Other symptoms and signs concerning food and fluid intake Status: Acute Plan: Fluids: NS @ 110ml/hr Electrolytes: monitor and replete as needed Nutrition: NPO after midnight GI Prophylaxis: None indicated at this time (6) DVT prophylaxis Status: Acute Plan: DVT Prophylaxis: Early ambulation. bilateral SCDs as she does have surgery today we will continue to hold any heparin until at least 24 hours after surgery. - Assessment and Plan 77-year-old AAF with a past medical history of CKD, hypertension, rheumatoid arthritis presenting with second digit of the right hand pain. Patient likely has an abscess. Hand surgery is on board. H&P: Quality - VTE Deep Vein Thrombosis/Pulmonary Embolism Present on Admission: No (1) Abscess of finger Qualifiers: Laterality: right Qualified Code(s): L02.511 - Cutaneous abscess of right hand (2) HTN (hypertension) Qualifiers: Hypertension type: essential hypertension Qualified Code(s): I10 - Essential (primary) hypertension (3) Rheumatoid arthritis Qualifiers: Rheumatoid arthritis location: hand Rheumatoid factor presence: unspecified presence Laterality: bilateral Qualified Code(s): M06.9 - Rheumatoid arthritis , unspecified (4) CKD (chronic kidney disease) Qualifiers: Chronic kidney disease stage: stage 2 (mild) Qualified Code(s): N18.2 - Chronic kidney disease, stage 2 (mild)
[2017-12-26] MEDS ORDERED: Lidocaine PF 1% Inj 5 ML Syringe INFILTRATN ONE (12:00)
--- NOTE | 2017-12-26 12:02 | P.PNOP ---
Subjective Interval history: Patient reports pain controlled in PACU. Physical Exam Vital signs: Vital Signs 12/25/17 13:06 12/25/17 17:00 12/25/17 21:20 Temperature 98.3 F 98.1 F Pulse Rate 76 75 84 Respiratory Rate 17 16 17 Blood Pressure 123/68 167/84 H 111/64 Pulse Oximetry 99 100 98 12/26/17 03:25 12/26/17 08:00 12/26/17 11:40 Temperature 97.9 F 97.9 F Pulse Rate 84 68 73 Respiratory Rate 16 18 13 Blood Pressure 118/63 124/68 134/75 Pulse Oximetry 100 99 98 Intake & Output 12/25/17 12/26/17 12/26/17 18:59 06:59 18:59 Intake Total 770 / 770 Balance 770 / 770 Weight 68.946 kg Intake: IV 50 / 50 Cleocin 600 mg/NS Premix 600 mg 50 / 50 In 50 ml @ 100 mls/hr IV.SIG ONCE ONE Rx#:[id number] Oral 720 / 720 Other: # Voids 0 Date of Last Bowel Movement 12/24/17 - Routine Extremities Exam Comments: Dressing in place Results - Labs CBC & Chem 7: 12/26/17 07:45 12/26/17 07:15 Laboratory Results - last 24 hr 12/25/17 12/25/17 12/25/17 15:35 15:35 15:35 WBC 7.9 RBC 4.00 Hgb 11.3 L Hct 35.3 MCV 88.1 MCH 28.3 MCHC 32.2 RDW 14.8 Plt Count 151 MPV 10.6 Neut % (Auto) 65.9 Lymph % (Auto) 22.7 [place] % (Auto) 9.2 H Eos % (Auto) 1.4 Baso % (Auto) 0.8 Neut # (Auto) 5.2 Lymph # (Auto) 1.8 [place] # (Auto) 0.7 Eos # (Auto) 0.1 Baso # (Auto) 0.1 WBC Differential . Differential Comment Auto diff final ESR PT 10.0 INR 1.0 APTT 28.5 Sodium 139 Potassium 5.1 Chloride 107 Carbon Dioxide 21.1 Anion Gap 11 BUN 28 H Creatinine 1.29 H Estimated GFR 48 L POC Glucose Random Glucose 77 Calcium 9.0 Total Bilirubin AST ALT Alkaline Phosphatase C-Reactive Protein Total Protein Albumin Blood Type Antibody Screen 12/25/17 12/25/17 12/25/17 15:35 15:35 23:44 WBC RBC Hgb Hct MCV MCH MCHC RDW Plt Count MPV Neut % (Auto) Lymph % (Auto) [place] % (Auto) Eos % (Auto) Baso % (Auto) Neut # (Auto) Lymph # (Auto) [place] # (Auto) Eos # (Auto) Baso # (Auto) WBC Differential Differential Comment ESR 32 H PT INR APTT Sodium Potassium Chloride Carbon Dioxide Anion Gap BUN Creatinine Estimated GFR POC Glucose Random Glucose Calcium Total Bilirubin AST ALT Alkaline Phosphatase C-Reactive Protein 2.40 H Total Protein Albumin Blood Type O Positive Antibody Screen Negative 12/26/17 12/26/17 12/26/17 07:15 07:45 09:15 WBC 6.2 RBC 3.83 L Hgb 10.7 L Hct 33.1 L MCV 86.3 MCH 28.0 MCHC 32.4 RDW 14.9 Plt Count 142 L MPV 10.2 Neut % (Auto) 55.3 Lymph % (Auto) 31.7 [place] % (Auto) 10.1 H Eos % (Auto) 2.2 Baso % (Auto) 0.7 Neut # (Auto) 3.4 Lymph # (Auto) 2.0 [place] # (Auto) 0.6 Eos # (Auto) 0.1 Baso # (Auto) 0.0 WBC Differential . Differential Comment Auto diff final ESR PT INR APTT Sodium 145 Potassium 4.4 Chloride 112 H Carbon Dioxide 23.5 Anion Gap 10 BUN 27 H Creatinine 1.13 H Estimated GFR 56 L POC Glucose 78 Random Glucose 76 Calcium 8.9 Total Bilirubin 0.3 AST 42 H ALT 31 Alkaline Phosphatase 126 H C-Reactive Protein Total Protein 7.4 Albumin 3.2 L Blood Type Antibody Screen Microbiology 12/25/17 15:35 Blood - Peripheral Aerobic Blood Culture - Preliminary No growth in 1 day 12/25/17 15:35 Blood - Peripheral Anaerobic Blood Culture - Preliminary No growth in 1 day 12/25/17 15:40 Blood - Peripheral Aerobic Blood Culture - Preliminary No growth in 1 day 12/25/17 15:40 Blood - Peripheral Anaerobic Blood Culture - Preliminary No growth in 1 day - Imaging Impressions Finger X-Ray 12/25/17 00:00 CONCLUSION: Soft tissue swelling as above. There has been no significant change when compared to the prior exam. Hand MRI 12/25/17 00:00 CONCLUSION: Lobulated 1.5 cm mass at the distal aspect of the second digit. 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 On the plain film examination, the appearance of the distal second digit appears similar compared to prior exam from 2012. This suggest the soft tissue changes represent a chronic underlying process such an epidermis inclusion cyst versus other soft tissue masses/fluid collections. No acute bony changes are seen. Assessment and Plan - Assessment and Plan [id number] POD0 s/p I&D abscess right index finger which had prior amputation through the distal phalanx now amputation through the DIP joint, concern for osteomyelitis -Multiple cultures and bone biopsy sent, appreciate ID input, patient likely will remain in the hospital until cultures final -Daily dressing changes -will continue to follow
[2017-12-26] MEDS ORDERED: *morphine SULFATE 4 MG/ML PERIprocedure ONLY ONE (12:08)
--- NOTE | 2017-12-26 12:34 | MB ---
cc: Kathryn Pinzon MD DATE: 12/26/2017 REASON FOR CONSULTATION: Abscess, right index finger, status post remote history of amputation through the right index finger. HISTORY OF PRESENT ILLNESS: Valeri Christianson is a very pleasant 77-year-old right-hand dominant female, who states that she sustained an amputation through the right index finger through the distal phalanx in 1984 after an injury when cutting meat. She states she has had no problems except right after the amputation, she did have an infection, which was drained. She reports no other problems until approximately 4 days ago, she noted swelling over the right index finger. She does not recall any trauma or lacerations. She was given 1 dose of Bactrim by an outside physician, but IS ALLERGIC to this. She presented to the emergency room yesterday for worsening pain and swelling. She was admitted and started on IV antibiotics. An MRI was obtained, which is concerning for a large abscess. The patient reports pain over the finger. Denies any other areas of pain. PAST MEDICAL HISTORY: Osteoarthritis, hypertension. SURGICAL HISTORY: Hysterectomy, right knee surgery, right index finger amputation surgery. SOCIAL HISTORY: Patient denies current tobacco, alcohol or drug use. LABORATORY DATA: White count 7.9, ESR 32. CRP 2.4, glucose 78. IMAGING: X-rays show prior amputation of the right index finger through the distal phalanx with some calcification. MRI concerning for abscess. PHYSICAL EXAMINATION: The patient is alert and oriented. Exam of the right index finger shows amputation through the distal phalanx with no remaining nail. There is significant fluctuance on the ulnar aspect of the finger, concerning for abscess. ASSESSMENT AND PLAN: A 77-year-old female status post prior amputation of the right index finger through the distal phalanx, now with presentation concerning for abscess. Treatment options discussed with the patient and her family. They elected to proceed with surgical intervention. Risks were explained but not limited to wound complications, infection, stiffness, loss of range of motion, sepsis, need for additional surgeries and she elected to proceed at the earliest available time in the operating room. Kathryn Pinzon MD [facility] , 12:09 PM , 12:32 PM [facility]
--- NOTE | 2017-12-26 12:41 | MP ---
cc: Kathryn Pinzon MD DATE OF OPERATION: PREOPERATIVE DIAGNOSIS: Abscess, right index finger, which has sustained a prior amputation through the distal phalanx. POSTOPERATIVE DIAGNOSIS: Abscess, right index finger, which has sustained a prior amputation through the distal phalanx. PROCEDURES: 1. Irrigation and debridement deep abscess associated with possible osteomyelitis, right index finger. 2. Revision amputation, right index finger through the distal interphalangeal joint with neurectomies and direct closure 3. Interpretation of fluoroscopy by the surgeon, right index finger. SURGEON: Kathryn Pinzon MD DOCK BUILDER: None. ANESTHESIA: General and local. TOURNIQUET: None. SPECIMENS: Cultures x2, abscess for pathology, as well as bone for pathology. INDICATIONS FOR PROCEDURE: Valeri Christianson is a 77-year-old female status post amputation of the right index finger in 1984 after an injury. She states she did have 1 episode of infection, but has had no problems until approximately 4 days ago. She noted pain and swelling of the finger. She presented yesterday to the emergency room. She was started on antibiotics with minimal improvement in her symptoms. MRI concerning for a large fluid collection consistent with an abscess. The patient elected to proceed with surgical intervention. Risks were explained to include but not limited to wound complication, infection, sepsis, decreased range of motion, stiffness, pain, need for additional surgeries. She elected to proceed. DESCRIPTION OF PROCEDURE: The patient was identified in the preoperative holding area. The correct extremity was marked. The patient was taken to the operating room where anesthesia was induced. The right upper extremity was prepped and draped in normal sterile fashion. An incision was made over the ulnar tip at the area concerning for the abscess. Upon making a skin incision, there was significant purulence which was expressed and sent for culture. There was peeling of the skin. There was also deep abscess concerning for osteomyelitis. Some of the bone was sent for pathology, as well as the abscess. The decision was made to complete the amputation through the distal interphalangeal joint again for concern for osteomyelitis. The area was irrigated with antibiotic saline and rongeurs were used. Under fluoroscopy, the amputation was confirmed through the distal interphalangeal joint. Neurectomies were performed and direct loose closure with chromic. The patient will remain admitted in the hospital on IV antibiotics and we will follow the cultures closely. She will work on gentle range of motion. Kathryn Pinzon MD [facility]ITALI[facility] , 12:12 PM , 12:39 PM [facility]
[2017-12-26] MEDS: Lisinopril 10 MG Tablet PO SCH (13:40)
[2017-12-26] MEDS ORDERED: Vancomycin Consult Pharmacy 1 EACH OTHER SCH (17:00)
--- NOTE | 2017-12-26 17:47 | MB ---
cc: Alex Jones MD DATE: 12/26/2017 REQUESTING PHYSICIAN: Dr. Kathryn Pinzon REASON FOR CONSULTATION: Abscess of right index finger. HISTORY OF PRESENT ILLNESS: This is a 77-year-old black female who developed pain in her right index finger. 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 She reported pain starting up this week, approximately 5 days ago, and she was seen by a hand surgeon and was put on Bactrim. SHE HAS AN ALLERGY TO SULFA. She took 1 pill 4 days ago and immediately she developed nausea and vomiting and felt poorly. The finger became swollen and reddened and she presented to the emergency department for evaluation. She noted the pain in her finger was 10/10 scale when she presented. She was taken to surgery by Dr. Pinzon and underwent irrigation and debridement of a deep abscess and also revision of the amputation of the right index finger through the DIP joint and direct closure. She noted possibility of osteomyelitis and bone was sent for pathology. There was noted to be significant purulence as well. Currently, the patient has no complaints except for pain in the index finger, which is controlled with pain medication. She denies chills and has no nausea or vomiting. PAST MEDICAL HISTORY: Rheumatoid arthritis, hypertension and chronic kidney disease. ALLERGIES: 1. PENICILLIN. 2. SULFA. MEDICATIONS: 1. Hydrochlorothiazide. 2. Prinivil. 3. Tramadol. SOCIAL HISTORY: No tobacco, alcohol or illicit drugs. FAMILY HISTORY: Noncontributory. REVIEW OF SYSTEMS: All other systems reviewed and are negative, except for that mentioned in the history of present illness. PHYSICAL EXAMINATION: GENERAL: This is a pleasant, well-developed female who is in no acute distress. She is awake and alert and oriented. VITAL SIGNS: Temperature 97.8, blood pressure 152/91, respirations 17, heart rate 69. HEENT: Her head is atraumatic. Extraocular movements grossly intact. Pupils reactive to light. No icterus. Oropharynx moist mucosa without lesions. NECK: Supple without adenopathy. LUNGS: Clear breath sounds bilaterally. HEART: Regular S1, S2, without murmurs, rubs or gallops. ABDOMEN: Bowel sounds present, soft, nontender. RECTAL: Not performed. EXTREMITIES: The right hand is in a surgical dressing, which was not removed for inspection at this time. The patient is postop. The lower extremities revealed mild swelling of the knees. Otherwise, no clubbing, cyanosis or edema. SKIN: No rash. NEUROLOGIC: No gross focal finding. PSYCHIATRIC: Patient is calm and cooperative. LABORATORY DATA: WBC 6.2, sedimentation rate 32, platelets 142. Creatinine 1.13, estimated GFR 56. C-reactive protein 2.4. Wound culture is pending. Blood culture is pending. IMPRESSION: Abscess of the right index finger and changes concerning for osteomyelitis. Cultures pending. Bone pathology pending. RECOMMENDATIONS: Give vancomycin IV while awaiting the final culture. Because of the patient's renal function, a 1 gram dose will be given and levels will be ordered. Thank you for this consultation. I will follow the patient's progress and the cultures and adjust antibiotics accordingly. Thank you for this consultation. MD KADIE Infante/DIEGO , 04:50 PM , 05:46 PM
[2017-12-26] MEDS ORDERED: Vancomycin Inj 1,750 MG in Sodium Chlor 0.9% Inj 500 ML IV.SIG ONE (18:00)
[2017-12-27] MEDS: Sod Chloride 0.9% Inj 1,000 ML IV.CONT SCH (00:22)
--- NOTE | 2017-12-27 09:01 | P.PNFP ---
Subjective Interval history: Patient was seen and examined this morning. She is any pain and notes that she did have some small surgical site bleeding when she used the right arm to steady herself while toileting. This resolved after re-wrapping with nursing staff. The patient denies fevers, chills, nausea, vomiting, headaches, chest pain, abdominal pain, lower extremity edema. <Giulia Manjarrez Nasra - 12/27/17 10:00> Results - Labs Result diagrams: 12/28/17 06:25 12/28/17 06:25 <Milly Young - 12/28/17 13:38> Abnormal lab results 12/28/17 12/28/17 Range/Units 06:25 06:25 RBC 3.65 L (4.00-5.30) mil/mm3 Hgb 10.3 L (11.6-15.3) gm/dL Hct 32.0 L (35.0-46.0) % Plt Count 145 L (150-450) th/mm3 [place] % (Auto) 10.6 H (0.0-8.0) % Chloride 113 H (98-107) meq/L BUN 24 H (7-18) mg/dL Creatinine 1.03 H (0.50-1.00) mg/dL Estimated GFR 63 L (>89) mL/min Calcium 8.3 L (8.5-10.1) mg/dL Alkaline Phosphatase 128 H (45-117) U/L Albumin 3.0 L (3.4-5.0) g/dL Short CBC 12/28/17 Range/Units 06:25 WBC 5.7 (4.0-11.0) th/mm3 Hgb 10.3 L (11.6-15.3) gm/dL Hct 32.0 L (35.0-46.0) % Plt Count 145 L (150-450) th/mm3 BMP 12/28/17 06:25 Sodium 144 Potassium 4.6 Chloride 113 H Carbon Dioxide 23.4 BUN 24 H Creatinine 1.03 H Calcium 8.3 L Liver Function 12/28/17 Range/Units 06:25 Total Bilirubin 0.2 (0.2-1.0) mg/dL AST 26 (15-37) U/L ALT 26 (10-53) U/L Alkaline Phosphatase 128 H (45-117) U/L Albumin 3.0 L (3.4-5.0) g/dL <Milly Young M - 12/28/17 13:38> Physical Exam Vital signs: Vital Signs 12/27/17 16:00 12/27/17 20:00 12/28/17 00:00 Temperature 98.8 F 98.6 F 98.5 F Pulse Rate 79 75 76 Respiratory Rate 18 16 17 Blood Pressure 153/80 H 127/58 L 107/67 Pulse Oximetry 99 100 100 12/28/17 04:00 12/28/17 07:35 12/28/17 12:00 Temperature 98.4 F 98.1 F 97.8 F Pulse Rate 68 70 72 Respiratory Rate 16 18 16 Blood Pressure 136/74 153/77 H 131/78 Pulse Oximetry 100 99 100 Intake & Output 12/27/17 12/28/17 12/28/17 18:59 06:59 18:59 Intake Total 200 / 200 Balance 200 / 200 Intake: IV 200 / 200 Doxy 100 Inj 100 MG In NS Inj 200 / 200 100 ML @ 100 mls/hr IV.SIG Q12H [facility] Rx#:[id number] Other: # Voids 1 <Milly Young M - 12/28/17 13:38> Vital Signs 12/26/17 11:40 12/26/17 12:00 12/26/17 12:15 Temperature 97.8 F Pulse Rate 73 71 69 Respiratory Rate 13 18 17 Blood Pressure 134/75 134/73 152/91 H Pulse Oximetry 98 98 98 12/26/17 16:00 12/26/17 20:00 12/27/17 00:00 Temperature 98.8 F 98.5 F 98.4 F Pulse Rate 88 78 68 Respiratory Rate 18 18 20 Blood Pressure 116/58 L 132/87 131/74 Pulse Oximetry 96 98 98 12/27/17 04:00 12/27/17 08:00 Temperature 97.5 F L 98.8 F Pulse Rate 72 69 Respiratory Rate 20 18 Blood Pressure 136/75 152/78 H Pulse Oximetry 99 97 Intake & Output 12/26/17 12/27/17 12/27/17 18:59 06:59 18:59 Intake Total 800 / 800 1879 / 1880 Output Total 200 / 200 Balance 600 / 600 1880 / 1880 Intake: IV 1400 / 1400 NS Inj 1,000 ML @ 110 mls/hr IV 1000 / 1000 .CONT .Q9H6M [facility] Rx#:[id number] Vancomycin Inj 1,750 MG In NS 400 / 400 Inj 500 ML @ 250 mls/hr IV.SIG ONCE ONE Rx#:[id number] Oral 800 / 800 480 / 480 Output: Urine 200 / 200 Other: # Voids 1 <Giulia Manjarrez - 12/27/17 09:01> Narrative: GENERAL: Well-appearing elderly female in no apparent distress. SKIN: Warm and dry. No ecchymoses or rashes noted HEAD: Atraumatic. Normocephalic. EYES: Pupils equal and round. No scleral icterus. No injection or drainage. ENT: No nasal bleeding or discharge. Mucous membranes pink and moist. NECK: Trachea midline. No JVD. CARDIOVASCULAR: Regular rate and rhythm without murmur. RESPIRATORY: No accessory muscle use. Clear to auscultation. Breath sounds equal bilaterally. GASTROINTESTINAL: Abdomen soft, non-tender, nondistended. Hepatic and splenic margins not palpable. MUSCULOSKELETAL: Right distal forearm with clean and dry surgical wrap. The distal fingers are freely mobile and mildly swollen. They have intact sensation. Extremities otherwise without clubbing, cyanosis, or edema. No obvious deformities. NEUROLOGICAL: Awake and alert. No obvious cranial nerve deficits. Motor grossly within normal limits. Five out of 5 muscle strength in the arms and legs. Normal speech. PSYCHIATRIC: Appropriate mood and affect; insight and judgment normal. <Giulia Manjarrez L - 12/27/17 10:00> Assessment and Plan - Assessment (1) Abscess of finger Code(s): L02.519 - Cutaneous abscess of unspecified hand Status: Acute (2) Vagina bleeding Code(s): N93.9 - Abnormal uterine and vaginal bleeding, unspecified Status: Acute (3) CKD (chronic kidney disease) Code(s): N18.9 - Chronic kidney disease, unspecified Status: Chronic (4) Thrombocytopenia Code(s): D69.6 - Thrombocytopenia, unspecified Status: Acute (5) Anemia Code(s): D64.9 - Anemia, unspecified Status: Chronic (6) HTN (hypertension) Code(s): I10 - Essential (primary) hypertension Status: Chronic (7) Rheumatoid arthritis Code(s): M06.9 - Rheumatoid arthritis, unspecified Status: Chronic (8) Nutrition, metabolism, and development symptoms Code(s): R63.8 - Other symptoms and signs concerning food and fluid intake Status: Acute <Milly Young - 12/28/17 13:38> (1) Abscess of finger Code(s): L02.519 - Cutaneous abscess of unspecified hand Status: Acute Plan: Patient is status post I&D on 12/26, uncomplicated per documentation. Per ID notes suspicious for osteomyelitis. CRP 2.4, ESR 32. Patient does not meet sepsis criteria. Wound cultures and bone biopsy results pending. Patient to remain inpatient while monitoring results and to continue IV antibiotics. Of note she had an episode of Red Man Syndrome after IV vancomycin administration on 12/26. She received Benadryl and has had no further reaction. Vancomycin has been listed as an allergy prior to my evaluation. Will defer to ID and hand surgery regarding further antibiotic recommendations. Patient likely can attempt repeat vancomycin dose today with slow infusion rate and possible premedication with for example Vistaril. She may be a candidate for twice daily dosing if reasonable. Impression: Patient with visible abscess of second digit of right hand when admitted on . CRP and ESR are elevated but she does have rheumatoid arthritis. Thought to be on admission osteomyelitis versus abscess versus cellulitis. However on surgery today this was not thought to be all infectious. Hand MRI 12/25: Lobulated 1.5 cm mass at the distal aspect of the second digit. 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 The soft tissue changes represent a chronic underlying process such an epidermis inclusion cyst versus other soft tissue masses/fluid collections. No acute bony changes are seen. -Consulted hand surgery, ED physician spoke with Dr. Pinzon, appreciate recommendations -Will eat regular diet at this time -Clindamycin 600 mg IV given in ED -This was stopped by surgery -Vancomycin IV administered 12/26 with Red Man Syndrome reported, amenable to Benadryl. Reaction occurred after administration was completed. -Tramadol per pain scale -Infectious disease has been consulted, vancomycin ordered -Wound and bone biopsy results pending from 12/26 (2) CKD (chronic kidney disease) Code(s): N18.9 - Chronic kidney disease, unspecified Status: Chronic Plan: Creatinine 1.13 this morning. -Continue to monitor -IVF was given. her creatinine is fine today we will Hep-Lock her IV and allow her to eat and drink. (3) Thrombocytopenia Code(s): D69.6 - Thrombocytopenia, unspecified Status: Acute Plan: Mild, will continue to monitor. Will order Lovenox given DVT prophylaxis is indicated but if platelets continue to drop will discontinue (4) Anemia Code(s): D64.9 - Anemia, unspecified Status: Chronic Plan: Mild, appears chronic. We will continue to monitor. (5) HTN (hypertension) Code(s): I10 - Essential (primary) hypertension Status: Chronic Plan: Continue patient's at home medication of lisinopril-HCTZ 10-12.5 mg daily (6) Rheumatoid arthritis Code(s): M06.9 - Rheumatoid arthritis, unspecified Status: Chronic Plan: Patient currently not on her at home methotrexate. She is to follow-up with her assistant to the dean as of her last progress note from the [facility]. (7) Nutrition, metabolism, and development symptoms Code(s): R63.8 - Other symptoms and signs concerning food and fluid intake Status: Acute Plan: Fluids: PO hydration Electrolytes: monitor and replete as needed Nutrition: Regular diet GI Prophylaxis: None indicated at this time DVT Prophylaxis: Early ambulation. Lovenox 40mg subQ q24hr/bilateral SCDs PRN anti-HTN: Clonidine 0.1mg PO PRN for SBP > 180/ and/or DBP > 100 <Giulia Manjarrez - 12/27/17 10:00> - Assessment and Plan 77-year-old AAF with a past medical history of CKD, hypertension, rheumatoid arthritis presenting with second digit of the right hand pain. Patient admitted for workup of abscess versus osteomyelitis. Hand surgery and ID consulted and following closely.. Patient is status post I&D with bone biopsy . Admitted to inpatient 12/27, met inpatient criteria 12/25 given IV antibiotics administered <Giulia Manjarrez - 12/27/17 10:00> Discussed Condition With: Milly Young MD (attending) <Giulia Manjarrez - 12/27/17 10:04> Discharge Planning: Postoperative from I&D on 12/26/17. Patient will remain inpatient while cultures and bone biopsy are pending. Hand surgery and ID managing/following. Patient will likely be discharged to home. PT and OT evaluations ordered <LokiStevehill Hammonds - 12/27/17 10:04> - Attending Attestation The exam, history, and the medical decision-making described in the above note were completed with the assistance of the resident physician. I reviewed and agree with the findings presented. I attest that I had a [id number] encounter with the patient on the same day, and personally performed and documented my assessment and findings in the medical record. Her hand is well bandaged. appreciate the help of surgery and infectious disease. <Milly Young - 12/28/17 13:38> <Steve Manjarreza L - Last Filed: 12/27/17 10:00> (1) Abscess of finger Qualifiers: Laterality: right Qualified Code(s): L02.511 - Cutaneous abscess of right hand (2) CKD (chronic kidney disease) Qualifiers: Chronic kidney disease stage: stage 2 (mild) Qualified Code(s): N18.2 - Chronic kidney disease, stage 2 (mild) (5) HTN (hypertension) Qualifiers: Hypertension type: essential hypertension Qualified Code(s): I10 - Essential (primary) hypertension (6) Rheumatoid arthritis Qualifiers: Rheumatoid arthritis location: hand Rheumatoid factor presence: unspecified presence Laterality: bilateral Qualified Code(s): M06.9 - Rheumatoid arthritis , unspecified <Milly Young - Last Filed: 12/28/17 13:38> (1) Abscess of finger Qualifiers: Laterality: right Qualified Code(s): L02.511 - Cutaneous abscess of right hand (3) CKD (chronic kidney disease) Qualifiers: Chronic kidney disease stage: stage 2 (mild) Qualified Code(s): N18.2 - Chronic kidney disease, stage 2 (mild) (6) HTN (hypertension) Qualifiers: Hypertension type: essential hypertension Qualified Code(s): I10 - Essential (primary) hypertension (7) Rheumatoid arthritis Qualifiers: Rheumatoid arthritis location: hand Rheumatoid factor presence: unspecified presence Laterality: bilateral Qualified Code(s): M06.9 - Rheumatoid arthritis , unspecified <Giulia Manjarrez L - Last Filed: 12/27/17 10:00> (1) Abscess of finger Qualifiers: Laterality: right Qualified Code(s): L02.511 - Cutaneous abscess of right hand (2) CKD (chronic kidney disease) Qualifiers: Chronic kidney disease stage: stage 2 (mild) Qualified Code(s): N18.2 - Chronic kidney disease, stage 2 (mild) (5) HTN (hypertension) Qualifiers: Hypertension type: essential hypertension Qualified Code(s): I10 - Essential (primary) hypertension (6) Rheumatoid arthritis Qualifiers: Rheumatoid arthritis location: hand Rheumatoid factor presence: unspecified presence Laterality: bilateral Qualified Code(s): M06.9 - Rheumatoid arthritis , unspecified <Milly Young M - Last Filed: 12/28/17 13:38> (1) Abscess of finger Qualifiers: Laterality: right Qualified Code(s): L02.511 - Cutaneous abscess of right hand (3) CKD (chronic kidney disease) Qualifiers: Chronic kidney disease stage: stage 2 (mild) Qualified Code(s): N18.2 - Chronic kidney disease, stage 2 (mild) (6) HTN (hypertension) Qualifiers: Hypertension type: essential hypertension Qualified Code(s): I10 - Essential (primary) hypertension (7) Rheumatoid arthritis Qualifiers: Rheumatoid arthritis location: hand Rheumatoid factor presence: unspecified presence Laterality: bilateral Qualified Code(s): M06.9 - Rheumatoid arthritis , unspecified
[2017-12-27] MEDS: Lisinopril 10 MG Tablet PO SCH (09:47)
[2017-12-27 09:57] LABS: Baso % (Auto) 0.7 % (0.0-2.0); Eos # (Auto) 0.2 th/mm3 (0.0-0.4); Eos % (Auto) 3.2 % (0.0-4.0); Hematocrit 32.9 % (35.0-46.0); Hemoglobin 10.6 gm/dL (11.6-15.3); Lymph # (Auto) 1.7 th/mm3 (1.0-4.8); Lymph % (Auto) 28.9 % (9.0-44.0); Mean Corpuscular HGB Conc 32.1 % (32.0-36.0); Mean Corpuscular Hemoglobin 28.2 pg (27.0-34.0); Mean Corpuscular Volume 87.9 fL (80.0-100.0); Mean Platelet Volume 10.8 fL (7.0-11.0); Mono # (Auto) 0.6 th/mm3 (0.0-0.9); Mono % (Auto) 9.4 % (0.0-8.0); Neut # (Auto) 3.4 th/mm3 (1.8-7.7); Neut % (Auto) 57.8 % (16.0-70.0); Platelet Count 145 th/mm3 (150-450); Red Blood Count 3.75 mil/mm3 (4.00-5.30); Red Cell Distribution Width 15.1 % (11.6-17.2); White Blood Count 5.9 th/mm3 (4.0-11.0)
[2017-12-27 10:17] LABS: Calcium 8.7 mg/dL (8.5-10.1); Carbon Dioxide 21.5 meq/L (21.0-32.0); Potassium 4.7 meq/L (3.5-5.1)
--- NOTE | 2017-12-27 12:03 | ECG ---
Date Performed: 12/26/2017 Time Performed: 09:07:41 PTAGE: 77 years EKG: Sinus rhythm NORMAL ECG NO PREVIOUS TRACING DOCTOR: Papi Baez Interpretating Date/Time 12/27/2017 12:00:50
--- NOTE | 2017-12-27 12:19 | P.PNID ---
Subjective Remarks: Patient notes some pain in the right index finger. Afebrile. Developed itching and skin rash during vancomycin administration yesterday. Feels okay now. This is a 77-year-old black female who developed pain in her right index finger. 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 She reported pain starting up this week, approximately 5 days ago, and she was seen by a hand surgeon and was put on Bactrim. SHE HAS AN ALLERGY TO SULFA. She took 1 pill 4 days ago and immediately she developed nausea and vomiting and felt poorly. The finger became swollen and reddened and she presented to the emergency department for evaluation. She noted the pain in her finger was 10/10 scale when she presented. She was taken to surgery by Dr. Pinzon and underwent irrigation and debridement of a deep abscess and also revision of the amputation of the right index finger through the DIP joint and direct closure. Past Medical History: PAST MEDICAL HISTORY: Rheumatoid arthritis, hypertension and chronic kidney disease. Allergies/Adverse Reactions: Allergies penicillin G Allergy (Severe, Verified 12/25/17 14:38) Rash Sulfa (Sulfonamide Antibiotics) Allergy (Severe, Verified 12/25/17 14:38) RASH vancomycin Allergy (Verified 12/27/17 05:47) Itching, Generalized Objective Vital Signs 12/26/17 12:15 12/26/17 16:00 12/26/17 20:00 Temperature 98.8 F 98.5 F Pulse Rate 69 88 78 Respiratory Rate 17 18 18 Blood Pressure 152/91 H 116/58 L 132/87 Pulse Oximetry 98 96 98 12/27/17 00:00 12/27/17 04:00 12/27/17 08:00 Temperature 98.4 F 97.5 F L 98.8 F Pulse Rate 68 72 69 Respiratory Rate 20 20 18 Blood Pressure 131/74 136/75 152/78 H Pulse Oximetry 98 99 97 Intake & Output 12/26/17 12/27/17 12/27/17 18:59 06:59 18:59 Intake Total 800 / 800 1880 / 1880 Output Total 200 / 200 Balance 600 / 600 1880 / 1880 Intake: IV 1400 / 1400 NS Inj 1,000 ML @ 110 mls/hr IV 1000 / 1000 .CONT .Q9H6M [facility] Rx#:[id number] Vancomycin Inj 1,750 MG In NS 400 / 400 Inj 500 ML @ 250 mls/hr IV.SIG ONCE ONE Rx#:[id number] Oral 800 / 800 480 / 480 Output: Urine 200 / 200 Other: # Voids 1 12/25/17 15:35 Blood - Peripheral Aerobic Blood Culture - Preliminary No growth in 2 days 12/25/17 15:35 Blood - Peripheral Anaerobic Blood Culture - Preliminary No growth in 2 days 12/25/17 15:40 Blood - Peripheral Aerobic Blood Culture - Preliminary No growth in 2 days 12/25/17 15:40 Blood - Peripheral Anaerobic Blood Culture - Preliminary No growth in 2 days 12/26/17 10:38 Wound - Finger Fungal Smear - Final No fungal elements seen 12/26/17 10:38 Wound - Finger Fungal Culture - Pending 12/26/17 10:38 Wound - Finger Gram Stain - Final 12/26/17 10:38 Wound - Finger Wound Culture - Pending 12/26/17 10:38 Abscess - Finger Fungal Smear - Final No fungal elements seen 12/26/17 10:38 Abscess - Finger Fungal Culture - Pending 12/26/17 10:38 Abscess - Finger Gram Stain - Final 12/26/17 10:38 Abscess - Finger Wound Culture - Pending 12/26/17 10:38 Abscess - Finger Fungal Smear - Final No fungal elements seen 12/26/17 10:38 Abscess - Finger Fungal Culture - Pending 12/26/17 10:38 Abscess - Finger Gram Stain - Final 12/26/17 10:38 Abscess - Finger Wound Culture - Pending 12/26/17 10:38 Wound - Finger Acid Fast Bacilli Smear - Pending 12/26/17 10:38 Wound - Finger Mycobacterial Culture - Pending 12/26/17 10:38 Abscess - Finger Acid Fast Bacilli Smear - Pending 12/26/17 10:38 Abscess - Finger Mycobacterial Culture - Pending 12/26/17 10:38 Abscess - Finger Acid Fast Bacilli Smear - Pending 12/26/17 10:38 Abscess - Finger Mycobacterial Culture - Pending Lab - Hematology Results 12/25/17 12/25/17 12/26/17 15:35 15:35 07:45 WBC 7.9 6.2 RBC 4.00 3.83 L Hgb 11.3 L 10.7 L Hct 35.3 33.1 L MCV 88.1 86.3 MCH 28.3 28.0 MCHC 32.2 32.4 RDW 14.8 14.9 Plt Count 151 142 L MPV 10.6 10.2 Neut % (Auto) 65.9 55.3 Lymph % (Auto) 22.7 31.7 [place] % (Auto) 9.2 H 10.1 H Eos % (Auto) 1.4 2.2 Baso % (Auto) 0.8 0.7 Neut # (Auto) 5.2 3.4 Lymph # (Auto) 1.8 2.0 [place] # (Auto) 0.7 0.6 Eos # (Auto) 0.1 0.1 Baso # (Auto) 0.1 0.0 WBC Differential . . Differential Comment Auto diff final Auto diff final ESR 32 H 12/27/17 08:41 WBC 5.9 RBC 3.75 L Hgb 10.6 L Hct 32.9 L MCV 87.9 MCH 28.2 MCHC 32.1 RDW 15.1 Plt Count 145 L MPV 10.8 Neut % (Auto) 57.8 Lymph % (Auto) 28.9 [place] % (Auto) 9.4 H Eos % (Auto) 3.2 Baso % (Auto) 0.7 Neut # (Auto) 3.4 Lymph # (Auto) 1.7 [place] # (Auto) 0.6 Eos # (Auto) 0.2 Baso # (Auto) 0.0 WBC Differential . Differential Comment Auto diff final ESR Lab - Chemistry Results 12/25/17 12/25/17 12/26/17 15:35 15:35 07:15 Sodium 139 145 Potassium 5.1 4.4 Chloride 107 112 H Carbon Dioxide 21.1 23.5 Anion Gap 11 10 BUN 28 H 27 H Creatinine 1.29 H 1.13 H Estimated GFR 48 L 56 L POC Glucose Random Glucose 77 76 Calcium 9.0 8.9 Total Bilirubin 0.3 AST 42 H ALT 31 Alkaline Phosphatase 126 H C-Reactive Protein 2.40 H Total Protein 7.4 Albumin 3.2 L 12/26/17 12/27/17 09:15 08:41 Sodium 143 Potassium 4.7 Chloride 113 H Carbon Dioxide 21.5 Anion Gap 9 BUN 24 H Creatinine 1.09 H Estimated GFR 59 L POC Glucose 78 Random Glucose 68 L Calcium 8.7 Total Bilirubin AST ALT Alkaline Phosphatase C-Reactive Protein Total Protein Albumin Imaging: ITS Impressions Finger X-Ray 12/25/17 00:00 CONCLUSION: Soft tissue swelling as above. There has been no significant change when compared to the prior exam. Hand MRI 12/25/17 00:00 CONCLUSION: Lobulated 1.5 cm mass at the distal aspect of the second digit. 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 On the plain film examination, the appearance of the distal second digit appears similar compared to prior exam from 2012. This suggest the soft tissue changes represent a chronic underlying process such an epidermis inclusion cyst versus other soft tissue masses/fluid collections. No acute bony changes are seen. Physical Exam: PHYSICAL EXAMINATION: GENERAL: No acute distress. HEENT: No icterus. Oropharynx moist mucosa without lesions. NECK: Supple without adenopathy. LUNGS: Clear breath sounds. HEART: Regular S1, S2, without murmurs, rubs or gallops. EXTREMITIES: The right hand is in a surgical dressing, which was not removed for inspection at this time. No visible swelling at the forearm. SKIN: No rash visible. NEUROLOGIC: No gross focal finding. PSYCHIATRIC: Calm and cooperative. Assessment and Plan - Plan IMPRESSION: Abscess of the right index finger and changes concerning for osteomyelitis. Cultures pending. Bone pathology pending. Allergic reaction to vancomycin. Multiple antibiotic allergies. Chronic kidney disease. RECOMMENDATIONS: Start Doxycycline IV. Monitor for reaction. I spoke to Micro. Preliminary culture shows a staph aureus MSSA. Discussed with patient's daughter at bedside.
[2017-12-27] MEDS: Enoxaparin Inj 40 MG/0.4 ML Syringe SQ SCH (13:40)
[2017-12-28 07:19] LABS: Baso % (Auto) 0.6 % (0.0-2.0); Eos # (Auto) 0.2 th/mm3 (0.0-0.4); Eos % (Auto) 3.5 % (0.0-4.0); Hemoglobin 10.3 gm/dL (11.6-15.3); Lymph # (Auto) 1.7 th/mm3 (1.0-4.8); Lymph % (Auto) 30.4 % (9.0-44.0); Mean Corpuscular HGB Conc 32.3 % (32.0-36.0); Mean Corpuscular Hemoglobin 28.3 pg (27.0-34.0); Mean Corpuscular Volume 87.6 fL (80.0-100.0); Mean Platelet Volume 10.3 fL (7.0-11.0); Mono # (Auto) 0.6 th/mm3 (0.0-0.9); Mono % (Auto) 10.6 % (0.0-8.0); Neut # (Auto) 3.1 th/mm3 (1.8-7.7); Neut % (Auto) 54.9 % (16.0-70.0); Platelet Count 145 th/mm3 (150-450); Red Blood Count 3.65 mil/mm3 (4.00-5.30); White Blood Count 5.7 th/mm3 (4.0-11.0)
[2017-12-28 07:40] LABS: Alanine Aminotransferase 26 U/L (10-53); Anion Gap 8 meq/L (5-15); Aspartate Aminotransferase 26 U/L (15-37); Blood Urea Nitrogen 24 mg/dL (7-18); Calcium 8.3 mg/dL (8.5-10.1); Carbon Dioxide 23.4 meq/L (21.0-32.0); Chloride 113 meq/L (98-107); Glomerular Filtration Rate 63 mL/min (>89); Glucose,Random 81 mg/dL (74-106); Potassium 4.6 meq/L (3.5-5.1); Sodium 144 meq/L (136-145)
[2017-12-28 07:42] LABS: Alkaline Phosphatase 128 U/L (45-117); Total Protein 6.6 g/dL (6.4-8.2)
--- NOTE | 2017-12-28 08:10 | P.PNFP ---
Subjective Interval history: Patient was seen and examined this morning. Her hand has no pain. She states she had vaginal bleeding overnight, about a teaspoon or less. She states this is a first occurrence and she speculates that it was related to her scratching herself. She had a total hysterectomy in the 1970s per her report. The patient denies fevers, chills, nausea, vomiting, headaches, chest pain, abdominal pain, lower extremity edema. <LokiGiulia L - 12/28/17 09:46> Results - Labs Result diagrams: 12/28/17 06:25 12/28/17 06:25 <Milly Young - 12/28/17 13:40> Abnormal lab results 12/28/17 12/28/17 Range/Units 06:25 06:25 RBC 3.65 L (4.00-5.30) mil/mm3 Hgb 10.3 L (11.6-15.3) gm/dL Hct 32.0 L (35.0-46.0) % Plt Count 145 L (150-450) th/mm3 Reynolds % (Auto) 10.6 H (0.0-8.0) % Chloride 113 H (98-107) meq/L BUN 24 H (7-18) mg/dL Creatinine 1.03 H (0.50-1.00) mg/dL Estimated GFR 63 L (>89) mL/min Calcium 8.3 L (8.5-10.1) mg/dL Alkaline Phosphatase 128 H (45-117) U/L Albumin 3.0 L (3.4-5.0) g/dL Short CBC 12/28/17 Range/Units 06:25 WBC 5.7 (4.0-11.0) th/mm3 Hgb 10.3 L (11.6-15.3) gm/dL Hct 32.0 L (35.0-46.0) % Plt Count 145 L (150-450) th/mm3 BMP 12/28/17 06:25 Sodium 144 Potassium 4.6 Chloride 113 H Carbon Dioxide 23.4 BUN 24 H Creatinine 1.03 H Calcium 8.3 L Liver Function 12/28/17 Range/Units 06:25 Total Bilirubin 0.2 (0.2-1.0) mg/dL AST 26 (15-37) U/L ALT 26 (10-53) U/L Alkaline Phosphatase 128 H (45-117) U/L Albumin 3.0 L (3.4-5.0) g/dL <Milly Young M - 12/28/17 13:40> Abnormal lab results 12/27/17 12/27/17 12/28/17 Range/Units 08:41 08:41 06:25 RBC 3.75 L 3.65 L (4.00-5.30) mil/mm3 Hgb 10.6 L 10.3 L (11.6-15.3) gm/dL Hct 32.9 L 32.0 L (35.0-46.0) % Plt Count 145 L 145 L (150-450) th/mm3 Reynolds % (Auto) 9.4 H 10.6 H (0.0-8.0) % Chloride 113 H (98-107) meq/L BUN 24 H (7-18) mg/dL Creatinine 1.09 H (0.50-1.00) mg/dL Estimated GFR 59 L (>89) mL/min Random Glucose 68 L (74-106) mg/dL Calcium (8.5-10.1) mg/dL Alkaline Phosphatase (45-117) U/L Albumin (3.4-5.0) g/dL 12/28/17 Range/Units 06:25 RBC (4.00-5.30) mil/mm3 Hgb (11.6-15.3) gm/dL Hct (35.0-46.0) % Plt Count (150-450) th/mm3 Reynolds % (Auto) (0.0-8.0) % Chloride 113 H (98-107) meq/L BUN 24 H (7-18) mg/dL Creatinine 1.03 H (0.50-1.00) mg/dL Estimated GFR 63 L (>89) mL/min Random Glucose (74-106) mg/dL Calcium 8.3 L (8.5-10.1) mg/dL Alkaline Phosphatase 128 H (45-117) U/L Albumin 3.0 L (3.4-5.0) g/dL Short CBC 12/27/17 12/28/17 Range/Units 08:41 06:25 WBC 5.9 5.7 (4.0-11.0) th/mm3 Hgb 10.6 L 10.3 L (11.6-15.3) gm/dL Hct 32.9 L 32.0 L (35.0-46.0) % Plt Count 145 L 145 L (150-450) th/mm3 BMP 12/27/17 12/28/17 08:41 06:25 Sodium 143 144 Potassium 4.7 4.6 Chloride 113 H 113 H Carbon Dioxide 21.5 23.4 BUN 24 H 24 H Creatinine 1.09 H 1.03 H Calcium 8.7 8.3 L Liver Function 12/28/17 Range/Units 06:25 Total Bilirubin 0.2 (0.2-1.0) mg/dL AST 26 (15-37) U/L ALT 26 (10-53) U/L Alkaline Phosphatase 128 H (45-117) U/L Albumin 3.0 L (3.4-5.0) g/dL <Giulia Manjarrez L - 12/28/17 08:10> Physical Exam Vital signs: Vital Signs 12/27/17 16:00 12/27/17 20:00 12/28/17 00:00 Temperature 98.8 F 98.6 F 98.5 F Pulse Rate 79 75 76 Respiratory Rate 18 16 17 Blood Pressure 153/80 H 127/58 L 107/67 Pulse Oximetry 99 100 100 12/28/17 04:00 12/28/17 07:35 12/28/17 12:00 Temperature 98.4 F 98.1 F 97.8 F Pulse Rate 68 70 72 Respiratory Rate 16 18 16 Blood Pressure 136/74 153/77 H 131/78 Pulse Oximetry 100 99 100 Intake & Output 12/27/17 12/28/17 12/28/17 18:59 06:59 18:59 Intake Total 200 / 200 Balance 200 / 200 Intake: IV 200 / 200 Doxy 100 Inj 100 MG In NS Inj 200 / 200 100 ML @ 100 mls/hr IV.SIG Q12H CARMEN Rx#:[id number] Other: # Voids 1 <Milly Young M - 12/28/17 13:40> Vital Signs 12/27/17 12:00 12/27/17 16:00 12/27/17 20:00 Temperature 97.9 F 98.8 F 98.6 F Pulse Rate 83 79 75 Respiratory Rate 18 18 16 Blood Pressure 110/62 153/80 H 127/58 L Pulse Oximetry 97 99 100 12/28/17 00:00 12/28/17 04:00 12/28/17 07:35 Temperature 98.5 F 98.4 F 98.1 F Pulse Rate 76 68 70 Respiratory Rate Blood Pressure 107/67 136/74 153/77 H Pulse Oximetry 100 100 99 Intake & Output 12/27/17 12/28/17 12/28/17 18:59 06:59 18:59 Intake Total 200 / 200 Balance 200 / 200 Intake: IV 200 / 200 Doxy 100 Inj 100 MG In NS Inj 200 / 200 100 ML @ 100 mls/hr IV.SIG Q12H CARMEN Rx#:[id number] <LokiGiulia L - 12/28/17 08:10> Narrative: GENERAL: Well-appearing elderly female in no apparent distress. SKIN: Warm and dry. No ecchymoses or rashes noted HEAD: Atraumatic. Normocephalic. EYES: Pupils equal and round. No scleral icterus. No injection or drainage. ENT: No nasal bleeding or discharge. Mucous membranes pink and moist. NECK: Trachea midline. No JVD. CARDIOVASCULAR: Regular rate and rhythm without murmur. RESPIRATORY: No accessory muscle use. Clear to auscultation. Breath sounds equal bilaterally. GASTROINTESTINAL: Abdomen soft, non-tender, nondistended. Hepatic and splenic margins not palpable. MUSCULOSKELETAL: Right distal forearm with clean and dry surgical wrap. The distal fingers are freely mobile and mildly swollen. They have intact sensation. Extremities otherwise without clubbing, cyanosis, or edema. No obvious deformities. NEUROLOGICAL: Awake and alert. No obvious cranial nerve deficits. Motor grossly within normal limits. Five out of 5 muscle strength in the arms and legs. Normal speech. PSYCHIATRIC: Appropriate mood and affect; insight and judgment normal. Genitourinary exam performed in the presence of patient's nurse and daughter with patient's approval. Speculum and lighting used to inspect vaginal and perianal areas. GENITOURINARY: External Genitalia: intact and normal in appearance Cervix: none visualized Vaginal mucosa: normal in appearance, no lesions, fissures, new or old blood. Vaginal dale appear de-estrogenized Bimanual exam reveals no masses or tenderness. Anus: normal in appearance, normal tone, no lesions, no new or old blood noted <Giulia Manjarrez - 12/28/17 09:46> Assessment and Plan - Assessment (1) Abscess of finger Code(s): L02.519 - Cutaneous abscess of unspecified hand Status: Acute (2) Vagina bleeding Code(s): N93.9 - Abnormal uterine and vaginal bleeding, unspecified Status: Acute (3) CKD (chronic kidney disease) Code(s): N18.9 - Chronic kidney disease, unspecified Status: Chronic (4) Thrombocytopenia Code(s): D69.6 - Thrombocytopenia, unspecified Status: Acute (5) Anemia Code(s): D64.9 - Anemia, unspecified Status: Chronic (6) HTN (hypertension) Code(s): I10 - Essential (primary) hypertension Status: Chronic (7) Rheumatoid arthritis Code(s): M06.9 - Rheumatoid arthritis, unspecified Status: Chronic (8) Nutrition, metabolism, and development symptoms Code(s): R63.8 - Other symptoms and signs concerning food and fluid intake Status: Acute <Milly Young - 12/28/17 13:40> (1) Abscess of finger Code(s): L02.519 - Cutaneous abscess of unspecified hand Status: Acute Plan: Patient is status post I&D on 12/26, uncomplicated per documentation. Per ID notes suspicious for osteomyelitis. CRP 2.4, ESR 32. Patient does not meet sepsis criteria. Wound cultures and bone biopsy results pending. Patient to remain inpatient while monitoring results and to continue IV antibiotics. Doxycycline initiated 12/27 per ID given reaction to Vancomycin, with no noted reactions to Doxycycline so far Studies: 12/25 Blood: negative x 2 days 12/26 Wound culture: Staph aureus (MSSA expected) 12/26 Wound AFB: negative 12/26 Mycobacteria: [pending] 12/26 Fungal [pending] 12/26: Bone biopsy: [pending] Impression: Patient with visible abscess of second digit of right hand when admitted on . CRP and ESR are elevated but she does have rheumatoid arthritis. Thought to be on admission osteomyelitis versus abscess versus cellulitis. However on surgery today this was not thought to be all infectious. Hand MRI 12/25: Lobulated 1.5 cm mass at the distal aspect of the second digit. 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 The soft tissue changes represent a chronic underlying process such an epidermis inclusion cyst versus other soft tissue masses/fluid collections. No acute bony changes are seen. -Consulted hand surgery, ED physician spoke with Dr. Pinzon, appreciate recommendations -Will eat regular diet at this time -Clindamycin 600 mg IV given in ED -This was stopped by surgery -Vancomycin IV administered 12/26 with Red Man Syndrome reported, amenable to Benadryl. Reaction occurred after administration was completed. -PO Tylenol and [place] per pain scale if needed -Infectious disease has been consulted, appreciated recommendations -Wound and bone biopsy results pending from 12/26 (2) Vagina bleeding Code(s): N93.9 - Abnormal uterine and vaginal bleeding, unspecified Status: Acute Plan: Per nursing patient report. Vaginal exam with speculum and bimanual evaluation were unremarkable. It is possible that patient had an abrasion that is not evident on exam. Low suspicion for malignancy or other concerning sources of bleeding. We will continue to monitor clinically and initiate further workup if indicated. (3) CKD (chronic kidney disease) Code(s): N18.9 - Chronic kidney disease, unspecified Status: Chronic Plan: Creatinine 1.03 this morning. Based on records this may be patient's baseline -Continue to monitor -IVF was given. her creatinine is fine today we will Hep-Lock her IV and allow her to eat and drink. (4) Thrombocytopenia Code(s): D69.6 - Thrombocytopenia, unspecified Status: Acute Plan: Mild an stable. Will continue to monitor. Will order Lovenox given DVT prophylaxis is indicated but if platelets continue to drop will discontinue (5) Anemia Code(s): D64.9 - Anemia, unspecified Status: Chronic Plan: Mild, appears chronic. We will continue to monitor. (6) HTN (hypertension) Code(s): I10 - Essential (primary) hypertension Status: Chronic Plan: Continue patient's at home medication of lisinopril-HCTZ 10-12.5 mg daily (7) Rheumatoid arthritis Code(s): M06.9 - Rheumatoid arthritis, unspecified Status: Chronic Plan: Patient currently not on her at home methotrexate. She is to follow-up with her new accounts clerk as of her last progress note from the [facility]. (8) Nutrition, metabolism, and development symptoms Code(s): R63.8 - Other symptoms and signs concerning food and fluid intake Status: Acute Plan: Fluids: PO hydration Electrolytes: monitor and replete as needed Nutrition: Regular diet GI Prophylaxis: None indicated at this time DVT Prophylaxis: Early ambulation. Lovenox 40mg subQ q24hr/bilateral SCDs PRN anti-HTN: Clonidine 0.1mg PO PRN for SBP > 180/ and/or DBP > 100 <Giulia Manjarrez Nasra - 12/28/17 09:32> - Assessment and Plan The exam, history, and the medical decision-making described in the above note were completed with the assistance of the resident physician. I reviewed and agree with the findings presented. I attest that I had a [id number] encounter with the patient on the same day, and personally performed and documented my assessment and findings in the medical record. On discussion with her daughter there was some consideration of her going to a rehab facility as she is having trouble getting around with her walker because of the recent surgery on her right hand. <Milly Young M - 12/28/17 13:40> 77-year-old AAF with a past medical history of CKD, hypertension, rheumatoid arthritis presenting with second digit of the right hand pain. Patient admitted for workup of abscess versus osteomyelitis. Hand surgery and ID consulted and following closely.. Patient is status post I&D with bone biopsy . Admitted to inpatient 12/27, met inpatient criteria 12/25 given IV antibiotics administered <Giulia Manjarrez Nasra - 12/28/17 08:10> Discharge Planning: Postoperative from I&D on 12/26/17. Patient will remain inpatient while cultures and bone biopsy are pending. Hand surgery and ID managing/following. Patient will likely be discharged to home. PT and OT evaluations ordered <Steve Manjarrezhill Hammonds - 12/28/17 08:10> <Giulia Manjarrez L - Last Filed: 12/28/17 09:32> (1) Abscess of finger Qualifiers: Laterality: right Qualified Code(s): L02.511 - Cutaneous abscess of right hand (3) CKD (chronic kidney disease) Qualifiers: Chronic kidney disease stage: stage 2 (mild) Qualified Code(s): N18.2 - Chronic kidney disease, stage 2 (mild) (6) HTN (hypertension) Qualifiers: Hypertension type: essential hypertension Qualified Code(s): I10 - Essential (primary) hypertension (7) Rheumatoid arthritis Qualifiers: Rheumatoid arthritis location: hand Rheumatoid factor presence: unspecified presence Laterality: bilateral Qualified Code(s): M06.9 - Rheumatoid arthritis , unspecified <Milly Young M - Last Filed: 12/28/17 13:40> (1) Abscess of finger Qualifiers: Laterality: right Qualified Code(s): L02.511 - Cutaneous abscess of right hand (3) CKD (chronic kidney disease) Qualifiers: Chronic kidney disease stage: stage 2 (mild) Qualified Code(s): N18.2 - Chronic kidney disease, stage 2 (mild) (6) HTN (hypertension) Qualifiers: Hypertension type: essential hypertension Qualified Code(s): I10 - Essential (primary) hypertension (7) Rheumatoid arthritis Qualifiers: Rheumatoid arthritis location: hand Rheumatoid factor presence: unspecified presence Laterality: bilateral Qualified Code(s): M06.9 - Rheumatoid arthritis , unspecified <Giulia Manjarrez L - Last Filed: 12/28/17 09:32> (1) Abscess of finger Qualifiers: Laterality: right Qualified Code(s): L02.511 - Cutaneous abscess of right hand (3) CKD (chronic kidney disease) Qualifiers: Chronic kidney disease stage: stage 2 (mild) Qualified Code(s): N18.2 - Chronic kidney disease, stage 2 (mild) (6) HTN (hypertension) Qualifiers: Hypertension type: essential hypertension Qualified Code(s): I10 - Essential (primary) hypertension (7) Rheumatoid arthritis Qualifiers: Rheumatoid arthritis location: hand Rheumatoid factor presence: unspecified presence Laterality: bilateral Qualified Code(s): M06.9 - Rheumatoid arthritis , unspecified <Milly Young - Last Filed: 12/28/17 13:40> (1) Abscess of finger Qualifiers: Laterality: right Qualified Code(s): L02.511 - Cutaneous abscess of right hand (3) CKD (chronic kidney disease) Qualifiers: Chronic kidney disease stage: stage 2 (mild) Qualified Code(s): N18.2 - Chronic kidney disease, stage 2 (mild) (6) HTN (hypertension) Qualifiers: Hypertension type: essential hypertension Qualified Code(s): I10 - Essential (primary) hypertension (7) Rheumatoid arthritis Qualifiers: Rheumatoid arthritis location: hand Rheumatoid factor presence: unspecified presence Laterality: bilateral Qualified Code(s): M06.9 - Rheumatoid arthritis , unspecified
[2017-12-28] MEDS: Lisinopril 10 MG Tablet PO SCH (09:52)
[2017-12-28] MEDS: Enoxaparin Inj 40 MG/0.4 ML Syringe SQ SCH (12:46)
--- NOTE | 2017-12-28 17:52 | P.PNID ---
Subjective Remarks: Patient notes some pain in the right index finger. Afebrile. Tolerating doxycycline without problems. No nausea. No itching of the skin. Pathology report consistent with abscess. Wound culture has staph aureus. MSSA. This is a 77-year-old black female who developed pain in her right index finger. 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 She reported pain starting up this week, approximately 5 days ago, and she was seen by a hand surgeon and was put on Bactrim. SHE HAS AN ALLERGY TO SULFA. She took 1 pill 4 days ago and immediately she developed nausea and vomiting and felt poorly. The finger became swollen and reddened and she presented to the emergency department for evaluation. She noted the pain in her finger was 10/10 scale when she presented. She was taken to surgery by Dr. Pinzon and underwent irrigation and debridement of a deep abscess and also revision of the amputation of the right index finger through the DIP joint and direct closure. Past Medical History: PAST MEDICAL HISTORY: Rheumatoid arthritis, hypertension and chronic kidney disease. Allergies/Adverse Reactions: Allergies penicillin G Allergy (Severe, Verified 12/25/17 14:38) Rash Sulfa (Sulfonamide Antibiotics) Allergy (Severe, Verified 12/25/17 14:38) RASH vancomycin Allergy (Verified 12/27/17 05:47) Itching, Generalized Objective Vital Signs 12/27/17 20:00 12/28/17 00:00 12/28/17 04:00 Temperature 98.6 F 98.5 F 98.4 F Pulse Rate 75 76 68 Respiratory Rate 16 17 16 Blood Pressure 127/58 L 107/67 136/74 Pulse Oximetry 100 100 100 12/28/17 07:35 12/28/17 12:00 12/28/17 16:00 Temperature 98.1 F 97.8 F 97.9 F Pulse Rate 70 72 78 Respiratory Rate 18 16 16 Blood Pressure 153/77 H 131/78 172/90 H Pulse Oximetry 99 100 100 Intake & Output 12/27/17 12/28/17 12/28/17 18:59 06:59 18:59 Intake Total 200 / 200 Balance 200 / 200 Intake: IV 200 / 200 Doxy 100 Inj 100 MG In NS Inj 200 / 200 100 ML @ 100 mls/hr IV.SIG Q12H CARMEN Rx#:[id number] Other: # Voids 1 12/25/17 15:35 Blood - Peripheral Aerobic Blood Culture - Preliminary No growth in 3 days 12/25/17 15:35 Blood - Peripheral Anaerobic Blood Culture - Preliminary No growth in 3 days 12/25/17 15:40 Blood - Peripheral Aerobic Blood Culture - Preliminary No growth in 3 days 12/25/17 15:40 Blood - Peripheral Anaerobic Blood Culture - Preliminary No growth in 3 days 12/26/17 10:38 Wound - Finger Gram Stain - Final 12/26/17 10:38 Wound - Finger Wound Culture - Final Staphylococcus aureus 12/26/17 10:38 Abscess - Finger Gram Stain - Final 12/26/17 10:38 Abscess - Finger Wound Culture - Final Staphylococcus aureus 12/26/17 10:38 Abscess - Finger Gram Stain - Final 12/26/17 10:38 Abscess - Finger Wound Culture - Final Staphylococcus aureus 12/26/17 10:38 Wound - Finger Acid Fast Bacilli Smear - Final No acid fast bacilli seen 12/26/17 10:38 Wound - Finger Mycobacterial Culture - Pending 12/26/17 10:38 Abscess - Finger Acid Fast Bacilli Smear - Final No acid fast bacilli seen 12/26/17 10:38 Abscess - Finger Mycobacterial Culture - Pending 12/26/17 10:38 Abscess - Finger Acid Fast Bacilli Smear - Final No acid fast bacilli seen 12/26/17 10:38 Abscess - Finger Mycobacterial Culture - Pending 12/26/17 10:38 Wound - Finger Fungal Smear - Final No fungal elements seen 12/26/17 10:38 Wound - Finger Fungal Culture - Pending 12/26/17 10:38 Abscess - Finger Fungal Smear - Final No fungal elements seen 12/26/17 10:38 Abscess - Finger Fungal Culture - Pending 12/26/17 10:38 Abscess - Finger Fungal Smear - Final No fungal elements seen 12/26/17 10:38 Abscess - Finger Fungal Culture - Pending Lab - Hematology Results 12/27/17 12/28/17 08:41 06:25 WBC 5.9 5.7 RBC 3.75 L 3.65 L Hgb 10.6 L 10.3 L Hct 32.9 L 32.0 L MCV 87.9 87.6 MCH 28.2 28.3 MCHC 32.1 32.3 RDW 15.1 15.0 Plt Count 145 L 145 L MPV 10.8 10.3 Neut % (Auto) 57.8 54.9 Lymph % (Auto) 28.9 30.4 Gates % (Auto) 9.4 H 10.6 H Eos % (Auto) 3.2 3.5 Baso % (Auto) 0.7 0.6 Neut # (Auto) 3.4 3.1 Lymph # (Auto) 1.7 1.7 Gates # (Auto) 0.6 0.6 Eos # (Auto) 0.2 0.2 Baso # (Auto) 0.0 0.0 WBC Differential . . Differential Comment Auto diff final Auto diff final Lab - Chemistry Results 12/27/17 12/28/17 08:41 06:25 Sodium 143 144 Potassium 4.7 4.6 Chloride 113 H 113 H Carbon Dioxide 21.5 23.4 Anion Gap 9 8 BUN 24 H 24 H Creatinine 1.09 H 1.03 H Estimated GFR 59 L 63 L Random Glucose 68 L 81 Calcium 8.7 8.3 L Total Bilirubin 0.2 AST 26 ALT 26 Alkaline Phosphatase 128 H Total Protein 6.6 D Albumin 3.0 L Imaging: ITS Impressions Finger X-Ray 12/25/17 00:00 CONCLUSION: Soft tissue swelling as above. There has been no significant change when compared to the prior exam. Hand MRI 12/25/17 00:00 CONCLUSION: Lobulated 1.5 cm mass at the distal aspect of the second digit. 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 On the plain film examination, the appearance of the distal second digit appears similar compared to prior exam from 2012. This suggest the soft tissue changes represent a chronic underlying process such an epidermis inclusion cyst versus other soft tissue masses/fluid collections. No acute bony changes are seen. Physical Exam: PHYSICAL EXAMINATION: GENERAL: No acute distress. HEENT: No icterus. Oropharynx moist mucosa without lesions. NECK: Supple without adenopathy. LUNGS: Clear breath sounds. HEART: Regular S1, S2, without murmurs, rubs or gallops. EXTREMITIES: The right hand is in a surgical dressing, which was not removed for inspection at this time. No drainage no visible swelling at the forearm. SKIN: No rash visible. NEUROLOGIC: No gross focal finding. PSYCHIATRIC: Calm and cooperative. Assessment and Plan - Plan IMPRESSION: Abscess of the right index finger. Bone pathology without evidence of osteomyelitis. Allergic reaction to vancomycin. Multiple antibiotic allergies. Tolerating doxycycline without problems. Chronic kidney disease. RECOMMENDATIONS: Change to doxycycline 100 mg p.o. tomorrow and treat 3 weeks. Okay to discharge from my standpoint when cleared by hand surgeon.
[2017-12-29 05:48] LABS: Baso # (Auto) 0.1 th/mm3 (0.0-0.2); Baso % (Auto) 0.8 % (0.0-2.0); Eos # (Auto) 0.2 th/mm3 (0.0-0.4); Eos % (Auto) 2.8 % (0.0-4.0); Hematocrit 31.5 % (35.0-46.0); Hemoglobin 10.2 gm/dL (11.6-15.3); Lymph # (Auto) 1.8 th/mm3 (1.0-4.8); Lymph % (Auto) 29.2 % (9.0-44.0); Mean Corpuscular HGB Conc 32.5 % (32.0-36.0); Mean Corpuscular Hemoglobin 28.3 pg (27.0-34.0); Mean Corpuscular Volume 87.2 fL (80.0-100.0); Mean Platelet Volume 10.6 fL (7.0-11.0); Mono # (Auto) 0.5 th/mm3 (0.0-0.9); Mono % (Auto) 8.5 % (0.0-8.0); Neut # (Auto) 3.6 th/mm3 (1.8-7.7); Neut % (Auto) 58.7 % (16.0-70.0); Platelet Count 149 th/mm3 (150-450); Red Blood Count 3.61 mil/mm3 (4.00-5.30); Red Cell Distribution Width 14.9 % (11.6-17.2); White Blood Count 6.2 th/mm3 (4.0-11.0)
[2017-12-29 06:07] LABS: Calcium 8.9 mg/dL (8.5-10.1); Carbon Dioxide 22.7 meq/L (21.0-32.0); Potassium 4.4 meq/L (3.5-5.1)
[2017-12-29 08:23] VITALS: BP 132/74; PULSE 70; RESP 16; TEMP 98.3; O2SAT 98
--- NOTE | 2017-12-29 09:44 | P.PNFP ---
Subjective Interval history: Patient was seen and examined this morning. She states she feels much better and has ambulated about the floor without difficulty. She has not had any repeat episodes of vaginal bleeding. She denies any pain in her hand. She denies concerns today. The patient denies fevers, chills, nausea , vomiting, headaches, chest pain, abdominal pain, lower extremity edema. <Giulia Manjarrez L - 12/29/17 10:12> Results - Labs Result diagrams: 12/29/17 04:55 12/29/17 04:55 <Milly Young - 12/29/17 11:56> Abnormal lab results 12/29/17 12/29/17 Range/Units 04:55 04:55 RBC 3.61 L (4.00-5.30) mil/mm3 Hgb 10.2 L (11.6-15.3) gm/dL Hct 31.5 L (35.0-46.0) % Plt Count 149 L (150-450) th/mm3 [place] % (Auto) 8.5 H (0.0-8.0) % Chloride 111 H (98-107) meq/L BUN 22 H (7-18) mg/dL Creatinine 1.01 H (0.50-1.00) mg/dL Estimated GFR 64 L (>89) mL/min Short CBC 12/29/17 Range/Units 04:55 WBC 6.2 (4.0-11.0) th/mm3 Hgb 10.2 L (11.6-15.3) gm/dL Hct 31.5 L (35.0-46.0) % Plt Count 149 L (150-450) th/mm3 [facility] 12/29/17 04:55 Sodium 142 Potassium 4.4 Chloride 111 H Carbon Dioxide 22.7 BUN 22 H Creatinine 1.01 H Calcium 8.9 <Milly Young - 12/29/17 11:56> Abnormal lab results 12/29/17 12/29/17 Range/Units 04:55 04:55 RBC 3.61 L (4.00-5.30) mil/mm3 Hgb 10.2 L (11.6-15.3) gm/dL Hct 31.5 L (35.0-46.0) % Plt Count 149 L (150-450) th/mm3 [place] % (Auto) 8.5 H (0.0-8.0) % Chloride 111 H (98-107) meq/L BUN 22 H (7-18) mg/dL Creatinine 1.01 H (0.50-1.00) mg/dL Estimated GFR 64 L (>89) mL/min Short CBC 12/29/17 Range/Units 04:55 WBC 6.2 (4.0-11.0) th/mm3 Hgb 10.2 L (11.6-15.3) gm/dL Hct 31.5 L (35.0-46.0) % Plt Count 149 L (150-450) th/mm3 BMP 12/29/17 04:55 Sodium 142 Potassium 4.4 Chloride 111 H Carbon Dioxide 22.7 BUN 22 H Creatinine 1.01 H Calcium 8.9 <Giulia Manjarrez - 12/29/17 09:44> Physical Exam Vital signs: Vital Signs 12/28/17 12:00 12/28/17 16:00 12/28/17 19:50 Temperature 97.8 F 97.9 F 98.4 F Pulse Rate 72 78 77 Respiratory Rate 16 16 16 Blood Pressure 131/78 172/90 H 134/67 Pulse Oximetry 100 100 100 12/28/17 23:23 12/29/17 03:42 12/29/17 08:00 Temperature 98.3 F 98 F 98.3 F Pulse Rate 83 75 70 Respiratory Rate 17 17 16 Blood Pressure 128/55 L 155/83 H 132/74 Pulse Oximetry 98 99 98 Intake & Output 12/28/17 12/29/17 12/29/17 18:59 06:59 18:59 Intake Total 280 / 280 920 / 920 Balance 280 / 280 920 / 920 Intake: IV 200 / 200 Doxy 100 Inj 100 MG In NS Inj 200 / 200 100 ML @ 100 mls/hr IV.SIG Q12H CARMEN Rx#:[id number] Oral 280 / 280 720 / 720 Other: # Voids 4 <Milly Young - 12/29/17 11:56> Vital Signs 12/28/17 12:00 12/28/17 16:00 12/28/17 19:50 Temperature 97.8 F 97.9 F 98.4 F Pulse Rate 72 78 77 Respiratory Rate 16 16 16 Blood Pressure 131/78 172/90 H 134/67 Pulse Oximetry 100 100 100 12/28/17 23:23 12/29/17 03:42 12/29/17 08:00 Temperature 98.3 F 98 F 98.3 F Pulse Rate 83 75 70 Respiratory Rate 17 17 16 Blood Pressure 128/55 L 155/83 H 132/74 Pulse Oximetry 98 99 98 Intake & Output 12/28/17 12/29/17 12/29/17 18:59 06:59 18:59 Intake Total 280 / 280 920 / 920 Balance 280 / 280 920 / 920 Intake: IV 200 / 200 Doxy 100 Inj 100 MG In NS Inj 200 / 200 100 ML @ 100 mls/hr IV.SIG Q12H CARMEN Rx#:[id number] Oral 280 / 280 720 / 720 Other: # Voids 4 <LokiGiulia L - 12/29/17 09:44> Narrative: GENERAL: Well-appearing patient in no apparent distress. SKIN: Warm and dry. No ecchymoses or rashes noted. HEAD: Atraumatic. Normocephalic. EYES: Pupils equal and round. No scleral icterus. No injection or drainage. ENT: No nasal bleeding or discharge. Mucous membranes pink and moist. NECK: Trachea midline. No JVD. CARDIOVASCULAR: Regular rate and rhythm without murmur. RESPIRATORY: No accessory muscle use. Clear to auscultation. Breath sounds equal bilaterally. GASTROINTESTINAL: Abdomen soft, non-tender, nondistended. Hepatic and splenic margins not palpable. MUSCULOSKELETAL: Right distal forearm with clean and dry surgical wrap. The distal fingers are freely mobile and mildly swollen. They have intact sensation. Extremities otherwise without clubbing, cyanosis, or edema. No obvious deformities. NEUROLOGICAL: Awake and alert. No obvious cranial nerve deficits. Motor grossly within normal limits. Five out of 5 muscle strength in the arms and legs. Normal speech. Normal gait PSYCHIATRIC: Appropriate mood and affect; insight and judgment normal. <LokiGiulia L - 12/29/17 10:12> Assessment and Plan - Assessment (1) Abscess of finger Code(s): L02.519 - Cutaneous abscess of unspecified hand Status: Acute (2) Vagina bleeding Code(s): N93.9 - Abnormal uterine and vaginal bleeding, unspecified Status: Resolved (3) CKD (chronic kidney disease) Code(s): N18.9 - Chronic kidney disease, unspecified Status: Chronic (4) Thrombocytopenia Code(s): D69.6 - Thrombocytopenia, unspecified Status: Acute (5) Anemia Code(s): D64.9 - Anemia, unspecified Status: Chronic (6) HTN (hypertension) Code(s): I10 - Essential (primary) hypertension Status: Chronic (7) Rheumatoid arthritis Code(s): M06.9 - Rheumatoid arthritis, unspecified Status: Chronic (8) Nutrition, metabolism, and development symptoms Code(s): R63.8 - Other symptoms and signs concerning food and fluid intake Status: Acute <Milly Young - 12/29/17 11:56> (1) Abscess of finger Code(s): L02.519 - Cutaneous abscess of unspecified hand Status: Acute Plan: Abscess resolved given I&D on 12/26. She is to follow-up with Dr. Pinzon and her PCP Dr. Lewis within 1 week of discharge. Cultures pending finalization and bone biopsy is pending but low suspicion for osteomyelitis at this time. She will have home health physical therapy for wound care dressing changes. Pain control with Tylenol and ibuprofen as needed given patient did not require significant pain control while in the hospital. She will continue doxycycline 100mg BID for 3 weeks per ID recommendations. Impression/Course: Patient with visible abscess of second digit of right hand when admitted on . CRP and ESR are elevated but she does have rheumatoid arthritis. Patient is status post I&D on 12/26, uncomplicated. Per ID notes initially suspicious for osteomyelitis but no evidence of this clinically. CRP 2.4, ESR 32. Patient did not meet sepsis criteria. Wound cultures showing MSSA and bone biopsy results pending. -Consulted hand surgery at time of admission -Clindamycin 600 mg IV given in ED -This was stopped by surgery -I&D on 12/26 with cultures and bone biopsy -Vancomycin IV administered 12/26 with Red Man Syndrome reported, amenable to Benadryl. Reaction occurred after administration was completed. -Doxycycline initiated 12/27 per ID given reaction to Vancomycin, with no noted reactions to Doxycycline so far, to continue at discharge. -Doxycycline transitioned from IV to PO day of discharge -PO Tylenol and [place] per pain scale if needed in hospital, to discharge with acetaminophen and ibuprofen as needed to mind max daily doses per auditing clerk -Appreciate Hand Surgery and Infectious disease assistance in patient's care Studies: 12/25 Blood: negative x 2 days 12/26 Wound culture: Staph aureus (MSSA expected) 12/26 Wound AFB: negative 12/26 Mycobacteria: [pending] 12/26 Fungal [pending] 12/26: Bone biopsy: [pending] Hand MRI 12/25: Lobulated 1.5 cm mass at the distal aspect of the second digit. 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 The soft tissue changes represent a chronic underlying process such an epidermis inclusion cyst versus other soft tissue masses/fluid collections. No acute bony changes are seen. (2) Vagina bleeding Code(s): N93.9 - Abnormal uterine and vaginal bleeding, unspecified Status: Resolved Plan: Per nursing patient report 12/28. Vaginal exam with speculum and bimanual evaluation were unremarkable. No recurrence. It is possible that patient had an abrasion that is not evident on exam. Low suspicion for malignancy or other concerning sources of bleeding. We will continue to monitor clinically as an outpatient and initiate further workup if indicated. (3) CKD (chronic kidney disease) Code(s): N18.9 - Chronic kidney disease, unspecified Status: Chronic Plan: Creatinine 1.01 this morning. Based on records this may be patient's baseline -Continue to monitor as outpt as needed -IVF given initially but d/c'd (4) Thrombocytopenia Code(s): D69.6 - Thrombocytopenia, unspecified Status: Acute Plan: Mild and stable, 149 on day of discharge. Will continue to monitor. Will order Lovenox given DVT prophylaxis is indicated but if platelets continue to drop warrant workup. Did have Lovenox while in the hospital. (5) Anemia Code(s): D64.9 - Anemia, unspecified Status: Chronic Plan: Mild, appears chronic. We will continue to monitor as outpt periodically. (6) HTN (hypertension) Code(s): I10 - Essential (primary) hypertension Status: Chronic Plan: Continue patient's at home medication of lisinopril-HCTZ 10-12.5 mg daily (7) Rheumatoid arthritis Code(s): M06.9 - Rheumatoid arthritis, unspecified Status: Chronic Plan: Patient currently not on her at home methotrexate. She is to follow-up with her process control specialist as of her last progress note from the [facility]. (8) Nutrition, metabolism, and development symptoms Code(s): R63.8 - Other symptoms and signs concerning food and fluid intake Status: Acute Plan: Fluids: PO hydration Electrolytes: monitor and replete as needed Nutrition: Regular diet GI Prophylaxis: None indicated at this time DVT Prophylaxis: Early ambulation. Lovenox 40mg subQ q24hr/bilateral SCDs PRN anti-HTN: Clonidine 0.1mg PO PRN for SBP > 180/ and/or DBP > 100 <Giulia Manjarrez - 12/29/17 09:58> - Assessment and Plan 77-year-old AAF with a past medical history of CKD, hypertension, rheumatoid arthritis presenting with second digit of the right hand pain. Patient admitted for workup of abscess versus osteomyelitis. Hand surgery and ID consulted and following closely.. Patient is status post I&D with bone biopsy . Culture showing MSSA. Admitted to inpatient 12/27, met inpatient criteria 12/25 given IV antibiotics administered, stable for discharge 12/29 with home health care. <Giulia Manjarrez - 12/29/17 10:12> Discharge Planning: Postoperative from I&D on 12/26/17. Patient is medically stable for discharge on 12/29 with outpatient continuation of antibiotics and hand surgery follow-up which is reportedly already scheduled for her. She will have home health physical therapy, occupational therapy, and home health nursing. She is to follow-up with PCP within 1 week of discharge. <Giulia Manjarrez - 12/29/17 10:12> - Attending Attestation The exam, history, and the medical decision-making described in the above note were completed with the assistance of the resident physician. I reviewed and agree with the findings presented. I attest that I had a [id number] encounter with the patient on the same day, and personally performed and documented my assessment and findings in the medical record. Ms Crhistianson is eager for discharge today. Her daughter had wanted her to go to rehab but she is walking well and has help at home. Per discussion with surgery her hand will be rebandaged today. <Milly Young - 12/29/17 11:56> <Giulia Manjarrez - Last Filed: 12/29/17 09:58> (1) Abscess of finger Qualifiers: Laterality: right Qualified Code(s): L02.511 - Cutaneous abscess of right hand (3) CKD (chronic kidney disease) Qualifiers: Chronic kidney disease stage: stage 2 (mild) Qualified Code(s): N18.2 - Chronic kidney disease, stage 2 (mild) (6) HTN (hypertension) Qualifiers: Hypertension type: essential hypertension Qualified Code(s): I10 - Essential (primary) hypertension (7) Rheumatoid arthritis Qualifiers: Rheumatoid arthritis location: hand Rheumatoid factor presence: unspecified presence Laterality: bilateral Qualified Code(s): M06.9 - Rheumatoid arthritis , unspecified <Milly Young M - Last Filed: 12/29/17 11:56> (1) Abscess of finger Qualifiers: Laterality: right Qualified Code(s): L02.511 - Cutaneous abscess of right hand (3) CKD (chronic kidney disease) Qualifiers: Chronic kidney disease stage: stage 2 (mild) Qualified Code(s): N18.2 - Chronic kidney disease, stage 2 (mild) (6) HTN (hypertension) Qualifiers: Hypertension type: essential hypertension Qualified Code(s): I10 - Essential (primary) hypertension (7) Rheumatoid arthritis Qualifiers: Rheumatoid arthritis location: hand Rheumatoid factor presence: unspecified presence Laterality: bilateral Qualified Code(s): M06.9 - Rheumatoid arthritis , unspecified <LokiStevehill Hammonds - Last Filed: 12/29/17 09:58> (1) Abscess of finger Qualifiers: Laterality: right Qualified Code(s): L02.511 - Cutaneous abscess of right hand (3) CKD (chronic kidney disease) Qualifiers: Chronic kidney disease stage: stage 2 (mild) Qualified Code(s): N18.2 - Chronic kidney disease, stage 2 (mild) (6) HTN (hypertension) Qualifiers: Hypertension type: essential hypertension Qualified Code(s): I10 - Essential (primary) hypertension (7) Rheumatoid arthritis Qualifiers: Rheumatoid arthritis location: hand Rheumatoid factor presence: unspecified presence Laterality: bilateral Qualified Code(s): M06.9 - Rheumatoid arthritis , unspecified <Milly Young M - Last Filed: 12/29/17 11:56> (1) Abscess of finger Qualifiers: Laterality: right Qualified Code(s): L02.511 - Cutaneous abscess of right hand (3) CKD (chronic kidney disease) Qualifiers: Chronic kidney disease stage: stage 2 (mild) Qualified Code(s): N18.2 - Chronic kidney disease, stage 2 (mild) (6) HTN (hypertension) Qualifiers: Hypertension type: essential hypertension Qualified Code(s): I10 - Essential (primary) hypertension (7) Rheumatoid arthritis Qualifiers: Rheumatoid arthritis location: hand Rheumatoid factor presence: unspecified presence Laterality: bilateral Qualified Code(s): M06.9 - Rheumatoid arthritis , unspecified
--- NOTE | 2017-12-29 09:44 | P.DCO ---
- Physical Therapy Order: Evaluate and treat, Improve ambulation, Strength and gait training - Occupational Therapy Order: Evaluate and treat, Gross motor coordination, Fine motor coordination - Home Health Nursing Order: Medical education, Signs/symptoms of disease process, Wound care and dressing changes (Patient needs dressing changes Wednesday, Wednesday, and Wednesday until cleared by MD to discontinue. Clean wound with normal saline and dress with non-stick dressing under dry gauze and cling.) - Certification I have seen patient Valeri Christianson on 12/29/17. My clinical findings support the need for the requested home health care services because: Limited mobility due to disease progression, Patient has SOB, Deconditioned with increased weakness I certify that my clinical findings support that this patient is homebound because: Post-op weakness, Unsteady gait/balance, Unsafe to leave home unassisted
--- NOTE | 2017-12-29 10:14 | P.DS ---
Date of admission: 12/27/17 09:04 Primary care physician: Brenda Manjarrez MD Attending physician on discharge: Milly Yonug Anticipated date of discharge: 12/29/17 Brief History from admission: Ms. Christianson is a 77-year-old with a past medical history of rheumatoid arthritis, hypertension presenting with right second digit pain. She states that this started 3 days prior to admission when she woke up and noticed an infection. 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 She states that the finger started irritating her this week and hurting at night. She went to see Dr. Brewster, hand surgery, who prescribed her Bactrim. She took 1 pill not realizing it was a sulfa drug and became sick. She did not take anymore antibiotic. The morning of admission she woke up drenched in sweat and noticed a pocket of pus in her finger. The pain had also become much worse today. She took some diclofenac which did not help with the pain. She was seen by the hand surgeon. She underwent surgery and according to the operative note there was no raging infection. This was felt to be more of a stable problem. Her clindamycin was discontinued. Her white blood count is and has been normal. Her sedimentation rate is normal especially considering she has rheumatoid arthritis. She has had no fevers. Medical Hx Osteoarthritis Rheumatoid Arthritis HTN Frequent Falls Surgical Hx Hysterectomy for fibroids Right knee (arthroscopy) Family Hx Father - at age 72; strokes, HTN, heart Dz Mother - age 62 in MVA; arthritis Siblings - 4; one has HTN and DM, one in WW2 Children - 7 living, healthy Social Hx Tobacco: former smoker, quit age [age] (doesn't recall exact year, but > 30 years ago) Alcohol: None Drugs: None Occupation: Homemaker Living situation: Lives with many of her children in a house Education: GED DS: Diagnosis - Discharge Diagnosis (1) Abscess of finger Status: Acute (2) Vagina bleeding Status: Resolved (3) CKD (chronic kidney disease) Status: Chronic (4) Thrombocytopenia Status: Acute (5) Anemia Status: Chronic (6) HTN (hypertension) Status: Chronic (7) Rheumatoid arthritis Status: Chronic (8) Nutrition, metabolism, and development symptoms Status: Acute DS: Summary Hospital Course: SUMMARY: 77-year-old AAF with a past medical history of CKD, hypertension, rheumatoid arthritis presenting with second digit of the right hand pain. Patient admitted for workup of abscess versus osteomyelitis. Hand surgery and ID consulted and following closely.. Patient is status post I&D with bone biopsy . Culture showing MSSA. Admitted to inpatient 12/27, met inpatient criteria 12/25 given IV antibiotics administered, stable for discharge 12/29 with home health care. Interval history: Patient was seen and examined this morning. She states she feels much better and has ambulated about the floor without difficulty. She has not had any repeat episodes of vaginal bleeding. She denies any pain in her hand. She denies concerns today. The patient denies fevers, chills, nausea, vomiting, headaches, chest pain, abdominal pain, lower extremity edema. Discharge Planning: Postoperative from I&D on 12/26/17. Patient is medically stable for discharge on 12/29 with outpatient continuation of antibiotics and hand surgery follow-up with Dr. Pinzon (which is reportedly already scheduled for her per RN). She will have home health physical therapy, occupational therapy, and home health nursing which case management is working to set up. She is to follow-up with PCP within 1 week of discharge. PROBLEMS/HOSPITAL COURSE: (1) Abscess of finger Abscess resolved given I&D on 12/26. She is to follow-up with Dr. Pinzon and her PCP Dr. Lewis within 1 week of discharge. Cultures pending finalization and bone biopsy is pending but low suspicion for osteomyelitis at this time. She will have home health physical therapy for wound care dressing changes. Pain control with Tylenol and ibuprofen as needed given patient did not require significant pain control while in the hospital. She will continue doxycycline 100mg BID for 3 weeks per ID recommendations. Impression/Course: Patient with visible abscess of second digit of right hand when admitted on . CRP and ESR are elevated but she does have rheumatoid arthritis. Patient is status post I&D on 12/26, uncomplicated. Per ID notes initially suspicious for osteomyelitis but no evidence of this clinically. CRP 2.4, ESR 32. Patient did not meet sepsis criteria. Wound cultures showing MSSA and bone biopsy results pending. -Consulted hand surgery at time of admission -Clindamycin 600 mg IV given in ED -This was stopped by surgery -I&D on 12/26 with cultures and bone biopsy -Vancomycin IV administered 12/26 with Red Man Syndrome reported, amenable to Benadryl. Reaction occurred after administration was completed. -Doxycycline initiated 12/27 per ID given reaction to Vancomycin, with no noted reactions to Doxycycline so far, to continue at discharge. -Doxycycline transitioned from IV to PO day of discharge -PO Tylenol and Gilman per pain scale if needed in hospital, to discharge with acetaminophen and ibuprofen as needed to mind max daily doses per web marketing analyst -Appreciate Hand Surgery and Infectious disease assistance in patient's care Studies: 12/25 Blood: negative x 2 days 12/26 Wound culture: Staph aureus (MSSA expected) 12/26 Wound AFB: negative 12/26 Mycobacteria: [pending] 12/26 Fungal [pending] 12/26: Bone biopsy: [pending] Hand MRI 12/25: Lobulated 1.5 cm mass at the distal aspect of the second digit. 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 The soft tissue changes represent a chronic underlying process such an epidermis inclusion cyst versus other soft tissue masses/fluid collections. No acute bony changes are seen. (2) Vagina bleeding Per nursing patient report 12/28. Vaginal exam with speculum and bimanual evaluation were unremarkable. No recurrence. It is possible that patient had an abrasion that is not evident on exam. Low suspicion for malignancy or other concerning sources of bleeding. We will continue to monitor clinically as an outpatient and initiate further workup if indicated. (3) CKD (chronic kidney disease) Creatinine 1.01 this morning (12/29). Based on records this may be patient's baseline -Continue to monitor as outpt as needed -IVF given initially but d/c'd (4) Thrombocytopenia Mild and stable, 149 on day of discharge. Will continue to monitor. Will order Lovenox given DVT prophylaxis is indicated but if platelets continue to drop warrant workup. Did have Lovenox while in the hospital. (5) Anemia Mild, appears chronic. We will continue to monitor as outpt periodically. (6) HTN (hypertension) Continue patient's at home medication of lisinopril-HCTZ 10-12.5 mg daily (7) Rheumatoid arthritis Patient currently not on her at home methotrexate. She is to follow-up with her door attendant as of her last progress note from the [facility]. - Time Spent with Patient Total time spent providing and/or coordinating discharge services: - Quality: VTE Deep Vein Thrombosis/Pulmonary Embolism Present on Admission: No Exam Vital signs: Vital Signs 12/28/17 12:00 12/28/17 16:00 12/28/17 19:50 Temperature 97.8 F 97.9 F 98.4 F Pulse Rate 72 78 77 Respiratory Rate 16 16 16 Blood Pressure 131/78 172/90 H 134/67 Pulse Oximetry 100 100 100 12/28/17 23:23 12/29/17 03:42 12/29/17 08:00 Temperature 98.3 F 98 F 98.3 F Pulse Rate 83 75 70 Respiratory Rate 17 17 16 Blood Pressure 128/55 L 155/83 H 132/74 Pulse Oximetry 98 99 98 Intake & Output 12/28/17 12/29/17 12/29/17 18:59 06:59 18:59 Intake Total 280 / 280 920 / 920 Balance 280 / 280 920 / 920 Intake: IV 200 / 200 Doxy 100 Inj 100 MG In NS Inj 200 / 200 100 ML @ 100 mls/hr IV.SIG Q12H CARMEN Rx#:[id number] Oral 280 / 280 720 / 720 Other: # Voids 4 Narrative: GENERAL: Well-appearing patient in no apparent distress. SKIN: Warm and dry. No ecchymoses or rashes noted. HEAD: Atraumatic. Normocephalic. EYES: Pupils equal and round. No scleral icterus. No injection or drainage. ENT: No nasal bleeding or discharge. Mucous membranes pink and moist. NECK: Trachea midline. No JVD. CARDIOVASCULAR: Regular rate and rhythm without murmur. RESPIRATORY: No accessory muscle use. Clear to auscultation. Breath sounds equal bilaterally. GASTROINTESTINAL: Abdomen soft, non-tender, nondistended. Hepatic and splenic margins not palpable. MUSCULOSKELETAL: Right distal forearm with clean and dry surgical wrap. The distal fingers are freely mobile and mildly swollen. They have intact sensation. Extremities otherwise without clubbing, cyanosis, or edema. No obvious deformities. NEUROLOGICAL: Awake and alert. No obvious cranial nerve deficits. Motor grossly within normal limits. Five out of 5 muscle strength in the arms and legs. Normal speech. Normal gait PSYCHIATRIC: Appropriate mood and affect; insight and judgment normal. Results Procedures completed during hospitalization: Surgical Incision and Drainage with Dr. Pinzon 12/26 with bone biopsy and wound cultures Labs on day of discharge: Labs from last 24 hours 12/29/17 12/29/17 04:55 04:55 WBC 6.2 RBC 3.61 L Hgb 10.2 L Hct 31.5 L MCV 87.2 MCH 28.3 MCHC 32.5 RDW 14.9 Plt Count 149 L MPV 10.6 Neut % (Auto) 58.7 Lymph % (Auto) 29.2 [place] % (Auto) 8.5 H Eos % (Auto) 2.8 Baso % (Auto) 0.8 Neut # (Auto) 3.6 Lymph # (Auto) 1.8 [place] # (Auto) 0.5 Eos # (Auto) 0.2 Baso # (Auto) 0.1 WBC Differential . Differential Comment Auto diff final Sodium 142 Potassium 4.4 Chloride 111 H Carbon Dioxide 22.7 Anion Gap 8 BUN 22 H Creatinine 1.01 H Estimated GFR 64 L Random Glucose 90 Calcium 8.9 Preliminary micro results at discharge 12/25/17 15:35 Aerobic Blood Culture - Preliminary Blood - Peripheral No growth in 3 days Anaerobic Blood Culture - Preliminary No growth in 3 days 12/25/17 15:40 Aerobic Blood Culture - Preliminary Blood - Peripheral No growth in 3 days Anaerobic Blood Culture - Preliminary No growth in 3 days - Impressions ITS Impressions Finger X-Ray 12/25/17 00:00 CONCLUSION: Soft tissue swelling as above. There has been no significant change when compared to the prior exam. Hand MRI 12/25/17 00:00 CONCLUSION: Lobulated 1.5 cm mass at the distal aspect of the second digit. 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 On the plain film examination, the appearance of the distal second digit appears similar compared to prior exam from 2012. This suggest the soft tissue changes represent a chronic underlying process such an epidermis inclusion cyst versus other soft tissue masses/fluid collections. No acute bony changes are seen. Discharge Plan - Discharge Disposition Patient Disposition: W/Home Health Service - Discharge Condition Condition: Stable - Discharge Order Discharge Orders: Discharge Order (Routine); Ordered 12/29/17 Ordered By: Giulia Manjarrez - Discharge Details Anticipated Discharge Date: 12/29/17 - Physicians Team Primary Care Provider: Brenda Manjarrez Attending Provider: Milly Young Other Providers: Kathryn Pinzon MD ; Alex Jones MD
[2017-12-29] MEDS: Lisinopril 10 MG Tablet PO SCH (10:39)
[2017-12-30] MEDS ORDERED: Pharmacy Ordered Lab Info OTHER ONE (04:45)
== END 2017-12-29 13:41 | disposition home health service (06) ==
LOC: NEDA 13:03 → NEPD 13:03 → NEPHCDU 20:05
PROVIDERS: ADMIT Family Medicine; ATTEND Family Medicine
PROC: [UNRECOGNIZED PROCEDURE] (2017-12-26 09:51)
DX: Z89.021 Acquired absence of right finger(s); N93.9 Abnormal uterine and vaginal bleeding, unspecified; L29.9 Pruritus, unspecified; Z87.891 Personal history of nicotine dependence; N18.2 Chronic kidney disease, stage 2 (mild); D64.9 Anemia, unspecified; M06.9 Rheumatoid arthritis, unspecified; T36.8X5A Adverse effect of other systemic antibiotics, initial encounter; D69.6 Thrombocytopenia, unspecified; I12.9 Hypertensive chronic kidney disease with stage 1 through stage 4 chronic kidney disease, or unspecified chronic kidney disease; L27.0 Generalized skin eruption due to drugs and medicaments taken internally; L02.511 Cutaneous abscess of right hand; L72.0 Epidermal cyst; B95.61 Methicillin susceptible Staphylococcus aureus infection as the cause of diseases classified elsewhere; Z90.710 Acquired absence of both cervix and uterus; Y92.239 Unspecified place in hospital as the place of occurrence of the external cause